=== PATIENT | female | born 1945 | race Caucasian/White ===

== ENCOUNTER 2016-06-14 23:00 | Emergency (ER) | payer MEDICARE, BC ==
[2016-06-14 23:32] LABS: Basophils % (A) 1 %; CH 30.9; CHCM 32.9; Eosinophils # (A) 0.3 k/uL (0-0.7); Eosinophils % (A) 5 %; HCT 41.2 % (34.0-46.0); HGB 13.4 gm/dL (11.4-16.0); Luc # (Auto) 0.16; Luc % (Auto) 3; Lymphocytes # (A) 1.4 k/uL (1.0-4.8); Lymphocytes % (A) 27 %; MCH 30.6 pg (25.0-35.0); MCHC 32.5 g/dL (31.0-37.0); MCV 94.2 fL (80.0-100.0); Mean Platelet Volume 7.1; Monocytes # (A) 0.5 k/uL (0-1.0); Monocytes % (A) 9 %; Neutrophils # (A) 2.8 k/uL (1.3-7.7); Neutrophils % (A) 55 %; RBC 4.38 m/uL (3.80-5.40); RDW 13.8 % (11.5-15.5); WBC 5.1 k/uL (3.8-10.6)
--- NOTE | 2016-06-14 23:32 | ED ---
General Adult HPI - General Chief complaint: Dizziness Stated complaint: BP Time Seen by Provider: 06/14/16 23:08 Source: patient, family Mode of arrival: ambulatory Limitations: no limitations - History of Present Illness Initial comments: This is a 62-year-old here with a history of hypertension or presents emergency department for high blood pressure, chest pressure, and dizziness. She states that the chest pressure is been going on and off for the last few weeks. She had a stress test approximate one week ago that was unremarkable per the patient. She states that her blood pressure has been elevated over the last few weeks. She is on Norvasc daily which she has been taking. She states that she was recently admitted to the hospital because of her elevated blood pressure. She does admit to a mild headache however no focal weakness. No blurred vision or double vision. Of note the patient's came in this evening and suffered a cardiac arrest and . The patient is very stressed out from this. She did take a Xanax and Norvasc before she presented to the ER. - Related Data Home Medications Medication Instructions Recorded Confirmed Levothyroxine Sodium [Synthroid] 88 mcg PO DAILY 01/12/15 02/04/16 Venlafaxine HCl [Effexor XR] 225 mg PO DAILY 08/07/15 02/04/16 lamoTRIgine [LaMICtal] 400 mg PO HS 11/17/15 02/04/16 ALPRAZolam 1 mg PO BID PRN 11/28/15 02/04/16 ALPRAZolam 1 mg PO BID@0700,1900 11/28/15 02/04/16 Cyclobenzaprine [Flexeril] 10 mg PO DAILY@0700 11/28/15 02/04/16 Hydrocodone/Acetaminophen [[place] 1 tab PO BID PRN 11/28/15 02/04/16 7.5-325] Previous Rx's Medication Instructions Recorded Eszopiclone [Lunesta] 3 mg PO HS #30 tab 11/24/15 Allergies Allergy/AdvReac Type Severity Reaction Status Date / Time No Known Allergies Allergy Verified 06/14/16 23:02 Review of Systems ROS Statement: Those systems with pertinent positive or pertinent negative responses have been documented in the HPI. ROS Other: All systems not noted in ROS Statement are negative. Past Medical History Past Medical History: Osteoarthritis (OA), Pneumonia, Thyroid Disorder Additional Past Medical History / Comment(s): Recent bowel surgery with post op acute metabolic encephalopathy and post op anemia, ECT with memory problems since, chronic back and neck pain - pt states she was told her spine is bone on bone., diverticulitis, constipation, osteoporosis, pancreatitis 2012, heart murmur as a child, pneumonia 2010, hypothyroid. History of Any Multi-Drug Resistant Organisms: None Reported Past Surgical History: Bowel Resection, Cholecystectomy, Tonsillectomy Additional Past Surgical History / Comment(s): 11-17-15 laparotomy with cecul volvulus-rt colectomy, ECT treatments, cosmetic facial sx/nose sx, colonoscopy- normal, L breast bx-benign, L knee arthroscopy. Past Anesthesia/Blood Transfusion Reactions: No Reported Reaction Past Psychological History: Anxiety, Bipolar, Depression Additional Psychological History / Comment(s): Pt resides with her spouse and her son lives with them. She no longer drives-family takes her places. Smoking Status: Never smoker Past Alcohol Use History: None Reported Past Drug Use History: None Reported - Past Family History Father Family Medical History: Coronary Artery Disease (CAD) Additional Family Medical History / Comment(s): at 62 Mother Family Medical History: Cancer Additional Family Medical History / Comment(s): brain cancer at age 70 General Exam - General Exam Comments Initial Comments: Constitutional: Awake alert Appears comfortable Head: Normocephalic atraumatic Eyes: no conjunctival injection No scleral icterus EOMI Neck: No JVD Supple Heart: Regular rate rhythm normal S1-S2 no murmurs Lungs: Clear to auscultation bilaterally No wheezing No rales Abdomen: Soft nondistended nontender Extremities: Non edematous DP pulses intact Radial pulses intact Neuro: A&Ox3 cranial nerves II through XII are grossly intact, pupils are 4 mm reactive bilaterally, no focal weakness in the extremities. No ataxia. Psych: Appropriate mood and affect Limitations: no limitations Course Vital Signs 06/14/16 06/14/16 06/15/16 23:01 23:56 00:21 Temperature 96.9 F L 98.0 F Pulse Rate 89 75 78 Respiratory 20 20 18 Rate Blood Pressure 222/97 183/96 166/86 O2 Sat by Pulse 98 98 98 Oximetry EKG Findings - EKG Comments: EKG Findings:: EKG showing normal sinus rhythm with a rate of 73.He segment changes or T-wave inversions. QTC is 429. Other intervals are normal. No ectopy. Medical Decision Making - Medical Decision Making This is a 70-year-old female presents emergency room for lightheadedness, chest pain, and elevated blood pressure. Blood pressure came down without any intervention. Last blood pressure is 166/86. Patient stated that she felt improved. Blood work was reviewed and unremarkable. This time I told her to continue taking her blood pressure medication. I told her to start a log of her blood pressures and follow-up with her primary doctor. She can return if she has worsening or changing symptoms. All questions were answered. - Lab Data Result diagrams: 06/14/16 23:25 06/14/16 23:25 Lab Results 06/14/16 06/14/16 06/14/16 Range/Units 23:25 23:25 23:25 WBC 5.1 (3.8-10.6) k/uL RBC 4.38 (3.80-5.40) m/uL Hgb 13.4 (11.4-16.0) gm/dL Hct 41.2 (34.0-46.0) % MCV 94.2 (80.0-100.0) fL MCH 30.6 (25.0-35.0) pg MCHC 32.5 (31.0-37.0) g/dL RDW 13.8 (11.5-15.5) % Plt Count 248 (150-450) k/uL Neutrophils % 55 % Lymphocytes % 27 % Monocytes % 9 % Eosinophils % 5 % Basophils % 1 % Neutrophils # 2.8 (1.3-7.7) k/uL Lymphocytes # 1.4 (1.0-4.8) k/uL Monocytes # 0.5 (0-1.0) k/uL Eosinophils # 0.3 (0-0.7) k/uL Basophils # 0.0 (0-0.2) k/uL Sodium 135 L (137-145) mmol/L Potassium 4.3 (3.5-5.1) mmol/L Chloride 97 L (98-107) mmol/L Carbon Dioxide 28 (22-30) mmol/L Anion Gap 10 mmol/L BUN 10 (7-17) mg/dL Creatinine 0.90 (0.52-1.04) mg/dL Est GFR (MDRD) Af Amer >60 (>60 ml/min/1.73 sqM) Est GFR (MDRD) Non-Af >60 (>60 ml/min/1.73 sqM) Glucose 96 (74-99) mg/dL Calcium 9.3 (8.4-10.2) mg/dL Total Bilirubin 0.3 (0.2-1.3) mg/dL AST 29 (14-36) U/L ALT 35 (9-52) U/L Alkaline Phosphatase 80 (38-126) U/L Troponin I <0.012 (0.000-0.034) ng/mL Total Protein 7.0 (6.3-8.2) g/dL Albumin 4.4 (3.5-5.0) g/dL Disposition Clinical Impression: Hypertension Disposition: HOME SELF-CARE Condition: Stable Instructions: Hypertension (ED) Referrals: Sajan Martin DO [Primary Care Provider] - 1-2 days
[2016-06-14 23:49] LABS: ALT 35 U/L (9-52); AST 29 U/L (14-36); Alkaline Phosphatase 80 U/L (38-126); Anion Gap 10 mmol/L; Blood Urea Nitrogen 10 mg/dL (7-17); Calcium 9.3 mg/dL (8.4-10.2); Carbon Dioxide 28 mmol/L (22-30); Chloride 97 mmol/L (98-107); Glucose 96 mg/dL (74-99); Non-African American GFR(MDRD) >60 (>60 ml/min/1.73 sqM); Potassium 4.3 mmol/L (3.5-5.1); Sodium 135 mmol/L (137-145); Total Bilirubin 0.3 mg/dL (0.2-1.3)
--- NOTE | 2016-06-14 23:56 | XR ---
EXAMINATION TYPE: XR chest 2V DATE OF EXAM: 06/14/2016 11:41 PM COMPARISON: 11/28/2015 HISTORY: Hypertension and feeling dizzy. TECHNIQUE: Frontal and lateral views of the chest are obtained. FINDINGS: There is stable prominent hilar vascular markings probably related to pulmonary hypertension. There is no focal air space opacity, pleural effusion, or pneumothorax seen. Chronic lung changes are suggested bilaterally. The cardiac silhouette size is within normal limits. The osseous structures are intact. IMPRESSION: 1. No focal pneumonia. 2. Chronic lung changes.
[2016-06-15 00:21] VITALS: BP 166/86; PULSE 78; RESP 18; TEMP 98
== END 2016-06-15 00:29 | disposition home or self-care (01) ==
LOC: EC 23:00
DX: I10 Essential (primary) hypertension (principal); E03.9 Hypothyroidism, unspecified; F41.9 Anxiety disorder, unspecified; F31.9 Bipolar disorder, unspecified; Z79.899 Other long term (current) drug therapy
CPT/HCPCS: 36415; 71020; 80053; 84484; 85025; 93005; 99284

== ENCOUNTER → 2016-09-28 | Outpatient (CLI) | payer MEDICARE, BC ==
--- NOTE | 2016-09-29 14:43 | MR ---
EXAMINATION TYPE: MR cervical spine wo con DATE OF EXAM: 09/28/2016 2:12 PM COMPARISON: NONE HISTORY: 71-year-old female with neck pain for 2 years. TECHNIQUE: Multiplanar, multisequence images of the cervical spine were acquired. Findings: No craniocervical junction abnormality, predental space widening, or prevertebral soft tissue swellin g. The intervertebral discs are degenerated, desiccated, and narrowed, greatest at C4-C6 levels with dis c osteophyte complex formation. Some sclerotic degenerative endplate change particularly at C4-C5, posteriorly and towards the right at C5-C6. No suspicious bone marrow replacement. Alignment is maintained. Corresponding ligamentum flavum thickening and multilevel advanced facet and uncovertebral joint dege nerative change. At C2-C3, there is facet degenerative change without spinal canal or foraminal stenosis. At C3-C4, there is facet degenerative change without significant canal or foraminal stenosis. At C4-C5, there is broad-based disc osteophyte complex with contiguous uncovertebral joint arthropath y. Additional facet arthropathy and ligamentum flavum thickening. Changes result in moderate right ne uroforaminal stenosis and [id number] spinal canal stenosis with abutment of both the dorsal and ventral cord but no significant cord flattening. At C5-C6, broad-based discussed by complex with contiguous uncovertebral joint degenerative change. C hanges result in mild to moderate right neuroforaminal stenosis with mild overall spinal canal stenos is. Abutment of the ventral cord without significant cord flattening. At C6-C7, there is broad-based disc osteophyte complex with uncovertebral joint and facet degenerativ e change as well as ligamentum flavum thickening. There is mild overall spinal canal narrowing. Mild left neuroforaminal stenosis. No significant cord abutment or cord flattening. At C7-T1, there is facet degenerative change without significant spinal canal or neural foraminal holger nosis. There is some artifact projecting over the cord but no definite suspicious cord signal abnormality. There appears to be an ovoid 1.5 x 1.5 cm T2 hyperintense lesion within the left prevertebral soft ti ssues behind the carotid space located at the T1 level. Etiology uncertain, possibly cystic lesion or large lymph node and can be further evaluated with a contrast enhanced CT neck. Refer to axial image 1 and sagittal T2 image 1. IMPRESSION: 1. Moderate to advanced disc/endplate degenerative change with scattered facet and uncovertebral join t arthropathy and ligamentum flavum thickening. 2. Changes are greatest at C4-C5 where there is a mild to moderate narrowing of the spinal canal with abutment of both the dorsal and ventral cord and then at the C5-C6 and C6-C7 where there is only mil d narrowing of the spinal canal. 3. Moderate right neuroforaminal stenosis at C4-C5 and mild to moderate on the right at C5-C6. 4. A partially visualized 1.5 cm ovoid T2 hyperintense lesion in the left prevertebral soft tissues b ehind the carotid space located at the T1 level. The etiology is uncertain. Possible cystic lesion, e ctatic vein, or enlarged lymph node. Consider contrast enhanced CT neck to further evaluate.
== END | disposition home or self-care (01) ==
LOC: RADMRIMAIN 13:13
PROVIDERS: ATTEND Orthopaedic Surgery
DX: M48.02 Spinal stenosis, cervical region (principal); M99.71 Connective tissue and disc stenosis of intervertebral foramina of cervical region; M47.812 Spondylosis without myelopathy or radiculopathy, cervical region; M46.92 Unspecified inflammatory spondylopathy, cervical region; M24.28 Disorder of ligament, vertebrae
CPT/HCPCS: 72141

== ENCOUNTER → 2016-10-22 | Outpatient (CLI) | payer MEDICARE, BC ==
--- NOTE | 2016-10-22 16:02 | CT ---
EXAMINATION TYPE: CT soft tissue neck wo con DATE OF EXAM: 10/22/2016 COMPARISON: MRI finding September 28, 2016 HISTORY: Neck Mass CT DLP: 174.5 mGycm Automated exposure control for dose reduction was used. FINDINGS: The 1.5 cm ovoid T2 hyperintense findings in the left prevertebral soft tissues on the recent MRI ext ends anteroinferolaterally into the left internal jugular vein, consistent with small varix. The remainder of the infrahyoid neck examination is unremarkable. No soft tissue mass, adenopathy, or focal skeletal findings. Cervical spondylosis changes are noted. The airway is unremarkable. The suprahyoid examination is unremarkable. No soft tissue mass, adenopathy, or focal skeletal findin gs. IMPRESSION: THE LEFT PREVERTEBRAL T2W SOFT TISSUE FINDING IS CONSISTENT WITH VARIX. NO OTHER FINDINGS.
== END | disposition home or self-care (01) ==
LOC: RADCTMAIN 12:29
PROVIDERS: ATTEND Family Medicine
DX: M79.89 Other specified soft tissue disorders (principal); R22.1 Localized swelling, mass and lump, neck
CPT/HCPCS: 70490

== ENCOUNTER 2017-01-12 13:06 | Emergency (ER) | payer MEDICARE, BC ==
[2017-01-12] MEDS ORDERED: FAMOTIDINE 20 MG/2 ML VIAL IV STA (13:17)
[2017-01-12] MEDS ORDERED: ONDANSETRON 4 MG/2 ML VIAL IVP STA (13:17)
[2017-01-12] MEDS ORDERED: SODIUM CHLORIDE 0.9% 1,000 ML IV ONE (13:17)
[2017-01-12] MEDS ORDERED: diphenhydrAMINE 50 MG/ML 1 ML VIAL IVP STA (13:17)
[2017-01-12] MEDS ORDERED: methylPREDNISolone SOD SUCCI 125 MG/2 ML VIAL IV STA (13:17)
[2017-01-12] MEDS ORDERED: RX INFO: IV CONTRAST WAS GIVEN 1 EACH MISC MISCELLANE PRN (13:17)
[2017-01-12] MEDS ORDERED: ASPIRIN 325 MG TAB PO STA (13:18)
[2017-01-12 14:10] LABS: Basophils # (A) 0.1 k/uL (0-0.2); Basophils % (A) 1 %; CH 30.8; CHCM 33.6; Eosinophils # (A) 0.3 k/uL (0-0.7); Eosinophils % (A) 3 %; HCT 39.6 % (34.0-46.0); HDW 2.43; HGB 13.5 gm/dL (11.4-16.0); Luc # (Auto) 0.36; Luc % (Auto) 4; Lymphocytes # (A) 1.8 k/uL (1.0-4.8); Lymphocytes % (A) 18 %; MCH 31.2 pg (25.0-35.0); MCV 91.8 fL (80.0-100.0); Mean Platelet Volume 6.4; Monocytes # (A) 0.7 k/uL (0-1.0); Monocytes % (A) 7 %; Neutrophils # (A) 6.5 k/uL (1.3-7.7); Neutrophils % (A) 67 %; RBC 4.31 m/uL (3.80-5.40); RDW 13.1 % (11.5-15.5); WBC 9.7 k/uL (3.8-10.6); WBC (Perox) 9.52
[2017-01-12 14:17] LABS: Anion Gap 11 mmol/L; Blood Urea Nitrogen 7 mg/dL (7-17); Calcium 9.6 mg/dL (8.4-10.2); Carbon Dioxide 25 mmol/L (22-30); Chloride 98 mmol/L (98-107); Glucose 85 mg/dL (74-99); Non-African American GFR(MDRD) >60 (>60 ml/min/1.73 sqM); Potassium 4.4 mmol/L (3.5-5.1); Sodium 134 mmol/L (137-145)
--- NOTE | 2017-01-12 14:51 | CT ---
EXAMINATION TYPE: CT soft tissue neck wo con DATE OF EXAM: 01/12/2017 COMPARISON: 10/22/2016 HISTORY: Patient complains of severe sore throat. CT DLP: 343.86 mGycm CONTRAST: Patient injected with 0 mL of Omnipaque 350. TECHNIQUE: Axial images at 3 mm thick sections. Reconstructed images in the coronal plane and sagitt al plane are reviewed. FINDINGS: Limited CT sections are obtained the lung apices. The lung apices appear clear. CT neck: The torus tubarius and fossa of Rosenmuller are normal. Forming Machine Adjuster spaces are normal. Para nasal sinuses and mastoid air cells are clear. Parotid glands appear normal and symmetrical. Submandibular glands, are normal. Parapharyngeal spac es are normal. There are scattered small lymph nodes within the neck greater on the right. No suspici ous enlarged adenopathy is evident. The hypopharynx appears within normal limits. Tonsillar pillars are unremarkable. Vocal cord level appear symmetrical. Thyroid as visualized is normal. There is a scoliosis through the cervical spine. IMPRESSIONS: 1. No suspicious abnormality to account for patient's sore throat. 2. Scattered small lymph nodes present bilaterally, greater on the right.
--- NOTE | 2017-01-12 14:54 | CT ---
EXAMINATION TYPE: CT chest wo con DATE OF EXAM: 01/12/2017 COMPARISON: NONE HISTORY: Patient complains of chest pain. CT DLP: 563.2 mGycm, Automated exposure control for dose reduction was used. CONTRAST: Performed injected with 0 mL of Omnipaque 350. TECHNIQUE: Axial images were obtained at 5 mm thick sections. Reconstructed images are reviewed on [employer] computer in the coronal plane. FINDINGS: Portion of the thyroid visualized is normal. No suspicious lung nodules or focal infiltrates are present. No enlarged mediastinal or hilar adenopathy is evident. The ascending aorta diameter at the level o f the main pulmonary artery is 3.4 cm. The main pulmonary artery diameter at the bifurcation is 2.[address] sections are obtained through the upper abdomen. Abdomen is essentially unremarkable. IMPRESSIONS: 1. No acute intrathoracic changes
--- NOTE | 2017-01-12 15:19 | XR ---
EXAMINATION TYPE: XR chest 2V DATE OF EXAM: 01/12/2017 COMPARISON: 06/14/2016 INDICATION: Sore throat TECHNIQUE: Frontal and lateral views of the chest are obtained. FINDINGS: The heart size is normal. The pulmonary vasculature is normal. The lungs are clear. Subglottic airway appears unremarkable IMPRESSION: 1. No acute pulmonary process.
--- NOTE | 2017-01-12 15:58 | ED ---
General Adult HPI - General Chief complaint: Chest Pain Stated complaint: SORE THROAT, POSSIBLE, CHEST PRESSURE Time Seen by Provider: 01/12/17 13:19 Source: patient, EMS Mode of arrival: EMS - History of Present Illness Initial comments: 71-year-old female with past medical history of osteoarthritis and thyroid disorder presented for evaluation of sore throat with radiation down into her chest. She states that her symptoms started last night and progressively worsened through the day. She states that she feels as though her small palate and uvula are swelling although she denies any shortness of breath, wheezing, stridor, or dyspnea. She went out to her [employer] soccer game this morning and her symptoms continued without any improvement. She denies any other associated symptoms and states that she's tried no new foods no new detergents or medications. She denies any previous history of ALLERGIC reactions and states that she is not having a fever, cough, scratchy throat. - Related Data Home Medications Medication Instructions Recorded Confirmed Levothyroxine Sodium [Synthroid] 88 mcg PO DAILY 01/12/15 01/12/17 Venlafaxine HCl [Effexor XR] 225 mg PO DAILY 08/07/15 01/12/17 lamoTRIgine [LaMICtal] 400 mg PO HS 11/17/15 01/12/17 ALPRAZolam 1 mg PO BID PRN 11/28/15 01/12/17 ALPRAZolam 1 mg PO BID@0700,1900 11/28/15 01/12/17 Hydrocodone/Acetaminophen [[place] 1 tab PO TID PRN 11/28/15 01/12/17 7.5-325] Levomefolate Calcium 7.5 mg PO DAILY 01/12/17 01/12/17 [l-Methylfolate Calcium] Meloxicam [Mobic] 15 mg PO DAILY 01/12/17 01/12/17 amLODIPine [Norvasc] 2.5 mg PO DAILY 01/12/17 01/12/17 Previous Rx's Medication Instructions Recorded Eszopiclone [Lunesta] 3 mg PO HS #30 tab 11/24/15 Azithromycin [Zithromax Z-pack] 0 mg PO DIRECTED #6 tab 01/12/17 diphenhydrAMINE [Benadryl] 50 mg PO BID PRN #14 capsule 01/12/17 predniSONE 50 mg PO DAILY #5 tablet 01/12/17 Allergies Allergy/AdvReac Type Severity Reaction Status Date / Time No Known Allergies Allergy Verified 01/12/17 14:28 Review of Systems ROS Statement: Those systems with pertinent positive or pertinent negative responses have been documented in the HPI. ROS Other: All systems not noted in ROS Statement are negative. Constitutional: Denies: fever, chills Eyes: Denies: eye pain, eye discharge, vision change ENT: Reports: throat pain. Denies: ear pain, hearing loss, epistaxis, congestion Respiratory: Denies: cough, dyspnea Cardiovascular: Denies: chest pain, palpitations Endocrine: Denies: fatigue, polydipsia Gastrointestinal: Denies: abdominal pain, nausea, vomiting Genitourinary: Denies: urgency, dysuria Musculoskeletal: Denies: back pain, arthralgia Skin: Denies: rash, lesions Neurological: Denies: headache, weakness Psychiatric: Denies: anxiety, depression Past Medical History Past Medical History: Osteoarthritis (OA), Pneumonia, Thyroid Disorder Additional Past Medical History / Comment(s): Recent bowel surgery with post op acute metabolic encephalopathy and post op anemia, ECT with memory problems since, chronic back and neck pain - pt states she was told her spine is bone on bone., diverticulitis, constipation, osteoporosis, pancreatitis 2012, heart murmur as a child, pneumonia 2010, hypothyroid. History of Any Multi-Drug Resistant Organisms: None Reported Past Surgical History: Bowel Resection, Cholecystectomy, Tonsillectomy Additional Past Surgical History / Comment(s): 11-17-15 laparotomy with cecul volvulus-rt colectomy, ECT treatments, cosmetic facial sx/nose sx, colonoscopy- normal, L breast bx-benign, L knee arthroscopy. Past Anesthesia/Blood Transfusion Reactions: No Reported Reaction Past Psychological History: Anxiety, Bipolar, Depression Smoking Status: Never smoker Past Alcohol Use History: None Reported Past Drug Use History: None Reported - Past Family History Father Family Medical History: Coronary Artery Disease (CAD) Additional Family Medical History / Comment(s): at 62 Mother Family Medical History: Cancer Additional Family Medical History / Comment(s): brain cancer at age 70 General Exam General appearance: alert, in no apparent distress Head exam: Present: atraumatic, normocephalic, normal inspection Eye exam: Present: normal appearance, PERRL, EOMI. Absent: scleral icterus, conjunctival injection, periorbital swelling ENT exam: Present: mucous membranes dry, TM's normal bilaterally, normal external ear exam, other (throat appears to be mildly swollen and inflamed). Absent: normal oropharynx Neck exam: Present: normal inspection. Absent: tenderness, meningismus, lymphadenopathy Respiratory exam: Present: normal lung sounds bilaterally. Absent: respiratory distress, wheezes, rales, rhonchi, stridor Cardiovascular Exam: Present: regular rate, normal rhythm, normal heart sounds. Absent: systolic murmur, diastolic murmur, rubs, gallop, clicks GI/Abdominal exam: Present: soft, normal bowel sounds. Absent: distended, tenderness, guarding, rebound, rigid Rectal exam: Present: deferred Extremities exam: Present: normal inspection, full ROM, normal capillary refill. Absent: tenderness, pedal edema, joint swelling, calf tenderness Back exam: Present: normal inspection Neurological exam: Present: alert, oriented X3, CN II-XII intact Psychiatric exam: Present: normal affect, normal mood Skin exam: Present: warm, dry, intact, other (nonspecific rash to back). Absent : rash, urticaria, vesicles Course Vital Signs 01/12/17 01/12/17 01/12/17 13:35 13:54 14:02 Temperature 97.9 F Pulse Rate 78 84 78 Respiratory 18 18 18 Rate Blood Pressure 187/87 206/87 170/74 O2 Sat by Pulse 96 97 98 Oximetry 01/12/17 01/12/17 01/12/17 14:10 14:44 15:28 Temperature Pulse Rate 77 76 78 Respiratory 18 18 16 Rate Blood Pressure 157/81 161/77 157/73 O2 Sat by Pulse 98 98 98 Oximetry 01/12/17 16:20 Temperature 97.2 F L Pulse Rate 79 Respiratory 18 Rate Blood Pressure 147/67 O2 Sat by Pulse 94 L Oximetry EKG Findings - EKG Comments: EKG Findings:: Normal sinus rhythm with a ventricular rate of 77, GEORGE 156, QRS 92, QT/QTc is 372/420. Medical Decision Making - Medical Decision Making 71-year-old female presented for evaluation of sore throat since last night. She states it came on suddenly progressed throughout the rest of the day. On physical examination lungs are clear to auscultation bilaterally and there is no abnormality and her heart tones without murmur or rubs or gallop. Her pharynx appears inflamed and mildly swollen however the patient states no shortness of breath and there is no stridor noted. There is a small rash to her back or rate is non-urticarial and she has no indications of ALLERGIC reaction. Nonetheless the patient was provided with steroids, Benadryl, and a PPI. CT soft tissue neck was also obtained as well as labs. Labs revealed no significant abnormalities and the CT neck soft tissue showed no acute process. CT chest also showed no acute process. The patient was reevaluated and had near resolution of her symptoms. She was informed of all results and through shared decision making it was determined that she would be discharged with instructions to follow-up with her primary care physician but to return to this facility if her symptoms should worsen or persist. The patient acknowledged an understanding of this information and agreed with this plan of care. She is further given prescriptions for steroids and a Z-Don. - Lab Data Result diagrams: 01/12/17 13:50 01/12/17 13:50 Lab Results 01/12/17 01/12/17 01/12/17 Range/Units 13:50 13:50 13:50 WBC 9.7 (3.8-10.6) k/uL RBC 4.31 (3.80-5.40) m/uL Hgb 13.5 (11.4-16.0) gm/dL Hct 39.6 (34.0-46.0) % MCV 91.8 (80.0-100.0) fL MCH 31.2 (25.0-35.0) pg MCHC 34.0 (31.0-37.0) g/dL RDW 13.1 (11.5-15.5) % Plt Count 306 (150-450) k/uL Neutrophils % 67 % Lymphocytes % 18 % Monocytes % 7 % Eosinophils % 3 % Basophils % 1 % Neutrophils # 6.5 (1.3-7.7) k/uL Lymphocytes # 1.8 (1.0-4.8) k/uL Monocytes # 0.7 (0-1.0) k/uL Eosinophils # 0.3 (0-0.7) k/uL Basophils # 0.1 (0-0.2) k/uL Sodium 134 L (137-145) mmol/L Potassium 4.4 (3.5-5.1) mmol/L Chloride 98 (98-107) mmol/L Carbon Dioxide 25 (22-30) mmol/L Anion Gap 11 mmol/L BUN 7 (7-17) mg/dL Creatinine 0.80 (0.52-1.04) mg/dL Est GFR (MDRD) Af Amer >60 (>60 ml/min/1.73 sqM) Est GFR (MDRD) Non-Af >60 (>60 ml/min/1.73 sqM) Glucose 85 (74-99) mg/dL Calcium 9.6 (8.4-10.2) mg/dL Troponin I (0.000-0.034) ng/mL NT-Pro-B Natriuret Pep 135 pg/mL Group A Strep Rapid (Negative) 01/12/17 01/12/17 Range/Units 13:50 13:50 WBC (3.8-10.6) k/uL RBC (3.80-5.40) m/uL Hgb (11.4-16.0) gm/dL Hct (34.0-46.0) % MCV (80.0-100.0) fL MCH (25.0-35.0) pg MCHC (31.0-37.0) g/dL RDW (11.5-15.5) % Plt Count (150-450) k/uL Neutrophils % % Lymphocytes % % Monocytes % % Eosinophils % % Basophils % % Neutrophils # (1.3-7.7) k/uL Lymphocytes # (1.0-4.8) k/uL Monocytes # (0-1.0) k/uL Eosinophils # (0-0.7) k/uL Basophils # (0-0.2) k/uL Sodium (137-145) mmol/L Potassium (3.5-5.1) mmol/L Chloride (98-107) mmol/L Carbon Dioxide (22-30) mmol/L Anion Gap mmol/L BUN (7-17) mg/dL Creatinine (0.52-1.04) mg/dL Est GFR (MDRD) Af Amer (>60 ml/min/1.73 sqM) Est GFR (MDRD) Non-Af (>60 ml/min/1.73 sqM) Glucose (74-99) mg/dL Calcium (8.4-10.2) mg/dL Troponin I <0.012 (0.000-0.034) ng/mL NT-Pro-B Natriuret Pep pg/mL Group A Strep Rapid Negative (Negative) Disposition Clinical Impression: Sore throat, Dehydration Disposition: HOME SELF-CARE Condition: Stable Instructions: Pharyngitis (ED), Strep Throat (ED), Anaphylaxis (ED), General Allergic Reaction (ED) Additional Instructions: Please use medication as discussed. Please follow up with family doctor if symptoms have not improved over the next two days. Please return to the emergency room if your symptoms increase or worsen or for any other concerns. Prescriptions: Azithromycin [Zithromax Z-pack] 0 mg PO DIRECTED #6 tab diphenhydrAMINE [Benadryl] 50 mg PO BID PRN #14 capsule PRN Reason: Allergic Reaction predniSONE 50 mg PO DAILY #5 tablet Referrals: Sajan Martin DO [Primary Care Provider] - 1-2 days Time of Disposition: 16:13
[2017-01-12 16:23] VITALS: BP 147/67; PULSE 79; RESP 18; TEMP 97.2
== END 2017-01-12 16:22 | disposition home or self-care (01) ==
LOC: EC 13:06
DX: J02.9 Acute pharyngitis, unspecified (principal); E86.0 Dehydration; R07.9 Chest pain, unspecified; E03.9 Hypothyroidism, unspecified; F41.9 Anxiety disorder, unspecified; F31.9 Bipolar disorder, unspecified; Z79.1 Long term (current) use of non-steroidal anti-inflammatories (NSAID); Z79.899 Other long term (current) drug therapy; Z53.8 Procedure and treatment not carried out for other reasons
CPT/HCPCS: 36415; 93005; 83880; 80048; 84484; 85025; 87081; 87430; 71020; 70490; 71250; 99285; 96374; 96375 ×3; 96361; J1200; J2930; J2405

== ENCOUNTER → 2017-03-25 | Outpatient (CLI) | payer BC, MEDICARE ==
[2017-03-06 15:44] VITALS: BMI 24.1
[2017-03-25 12:43] VITALS: BP 145/84; PULSE 78; RESP 16
--- NOTE | 2017-03-25 13:18 | P.CONS ---
History of Present Illness - Reason for Consult Consult date: 03/25/17 - History of Present Illness This is the initial visit for this 71 years old female with a chronic history of severe neck pain, pain started more than 5 years ago, she denies any initiating event she denies any history of trauma or accident or heavy lifting, also patient complaining of some low back pain, the pain increased with any activity , patient done physical therapy without any improvement of her pain, she denies any motor or sensory deficit that she reported that she will occasionally she feels some numbness and tingling in her fingers, the pain in the cervical area that radiated towards the shoulder blade area bilaterally, she denies any fever or night sweats she denies any change in the motor movement agglutinations, pain in the lumbar area localized, and is not radiated to the lower extremities Past Medical History Past Medical History: Hypertension, Osteoarthritis (OA), Thyroid Disorder Additional Past Medical History / Comment(s): left side and lower back pain, History of Any Multi-Drug Resistant Organisms: None Reported Past Surgical History: Bowel Resection, Cholecystectomy, Tonsillectomy Additional Past Surgical History / Comment(s): "face lift", cathi cataracts, Past Anesthesia/Blood Transfusion Reactions: No Reported Reaction Past Psychological History: Anxiety, Bipolar, Depression Additional Psychological History / Comment(s): "nervous breakdown 5 yrs ago" Smoking Status: Never smoker Past Alcohol Use History: None Reported Past Drug Use History: None Reported - Past Family History Father Family Medical History: Coronary Artery Disease (CAD) Additional Family Medical History / Comment(s): at 62 Mother Family Medical History: Cancer Additional Family Medical History / Comment(s): brain cancer Brother(s) Family Medical History: Cancer Medications and Allergies Home Medications Medication Instructions Recorded Confirmed Type Levothyroxine Sodium [Synthroid] 88 mcg PO DAILY 01/12/15 03/25/17 History lamoTRIgine [LaMICtal] 400 mg PO HS 11/17/15 03/25/17 History Eszopiclone [Lunesta] 3 mg PO HS #30 tab 11/24/15 03/25/17 Rx ALPRAZolam 1 mg PO QID PRN 11/28/15 03/25/17 History Hydrocodone/Acetaminophen [[place] 1 tab PO BID PRN 11/28/15 03/25/17 History 7.5-325] Cholecalciferol [Vitamin D3] 1,000 unit PO DAILY 03/06/17 03/25/17 History Multivitamins, Thera [Multivitamin 1 tab PO DAILY 03/06/17 03/25/17 History (formulary)] [place]-3 Fatty Acids/Fish Oil [Fish 1 each PO DAILY 03/06/17 03/25/17 History Oil 1,000 mg Softgel] Calcium Carbonate [Calcium] 1,200 mg PO DAILY 03/21/17 03/25/17 History Cyanocobalamin [Vitamin B-12] 500 mcg PO DAILY 03/21/17 03/25/17 History Cyclobenzaprine [Flexeril] 10 mg PO BID 03/21/17 03/25/17 History Meloxicam [Mobic] 15 mg PO DAILY 03/21/17 03/25/17 History Venlafaxine HCl [Effexor XR] 225 mg PO DAILY 03/21/17 03/25/17 History amLODIPine [Norvasc] 2.5 mg PO HS 03/21/17 03/25/17 History Allergies Allergy/AdvReac Type Severity Reaction Status Date / Time No Known Allergies Allergy Verified 03/25/17 12:28 Physical Exam Vitals: Vital Signs Pulse Resp BP Pulse Ox 03/25/17 12:32 78 16 145/84 98 Social history : not smoker , NO ETOH , NO Illegal drugs use Review of Systems : 1- Constitutional : no chills , no fever , no night sweats , 2- Ears : no ear discharge , no change in hearing 3-Nose, Mouth ,Throat ; no bleeding gums, no sore throat , no epistaxis , 4-Cardiovascular : Denies chest pain, , no orthopnea , no palpitation 5-Respiratory : Denies cough , no dyspnea , no hemoptysis 6-Gastrointestinal :, no change in bowel habits , no coffee- ground emesis . 7-Genitourinary : No hematuria , no discharge , no incontinence, 8-Musculoskeletal : No gait dysfunction , report low back pain , 9- Neurological : no ataxia , no tremor , no sezure , 10-Psychatric , no suicidal ideation no hallucination 11- Endocrine : no cold intolerence , no polyuria , no polydypsia , 12-Hematologic : no easy bleeding , no easy brusing , 13-Allergic / immunology : no angioedema , no wheezing ,no allergic rhinitis 14-Integumentary : no brttle nails , no change hair / nails , no foot/leg ulcers . Physical Examinations : 1-Constitutional : Cooperative , not in acute distress . 2-HEENT : nech ; supple , no Lymphadenopathy , no Thyromegaly , :eyes , no icterus, no photophobia . ENT : , normal oropharynx , no Thrush 3- Respiratory : Chest clear to auscultations Bilaterally , no wheezing . 4- Cardiovascular : regular rate and rhythem , S1 , S2 , no S3 , no S4. 5- Gastrointestinal: abdomen soft no tenderness , no organomegally . 6- Genitourinary : Defferred . 7-Integumentary : No cellulitis , no ulcers , normal skin turgor , no cyanotic . 8- neurologic : Cranial nerve II to XII intact , no focal neurological deffecit 9-psychatric : alert , oriented X 3 , appropriate affect , intact judgment and insight . 10-Lymphatic : no Lymphadenopathy. 11- musculoskeltal: normal gait Cervical Spine motor stregnth in the deltoid and biceps, normal right side , normal Left side motor stregnth biceps and the wrist extensors normal right side ,normal left side . motor stregnth in the triceps muscle . normal Right side , normal Left side deep tendon reflexes normal at the biceps , normal at Brachioradialis , normal at triceps. positive cervical facet loading test . Lumber spine moter stegnth lower extremities ,thigh and legs 5/5 Right side , 5/5 Left side deep tendon reflexes : normal Knee Jerk , normal ankle Jerk positive lumber facet Loading Test Range of motion of the lumbar spine Flexion 60 degrees, extension 10 degrees strait leg raising test negative bilaterally Fabere test negative bilaterally Results Comments: MRI of the cervical spine multilevel cervical facet arthropathy from C2 to C6 and multilevel cervical degenerative disc disease Assessment and Plan Plan: Assessment and plan= chronic neck pain secondary to cervical degenerative disc disease , cervical spondylosis with lumbar facet arthropathy , Chronic low back pain secondary to lumbar spondylosis. Currently most of the pain localized in the cervical area and discussed with the patient option of doing cervical diagnostic medial branch block, and if it was possible to do the radiofrequency ablation of the medial branch in the cervical area but patient reported that she is not interested in doing any interventional pain management , and she prefers to try medication management, recommend continue current pain medication [place] 7.5 mg twice a day, and Alia, Patient given prescription for Neurontin 100 mg twice a day and increase after 1 week to 3 times a day, and patient will follow up with the pain clinic in 6-8 weeks , if patient wanted to proceed with interventional pain management , then she could be candidate diagnostic medial branch block cervical area C2 to C6
== END | disposition home or self-care (01) ==
LOC: PNWHC3 12:21
PROVIDERS: ATTEND Specialist
DX: M50.30 Other cervical disc degeneration, unspecified cervical region (principal); M47.812 Spondylosis without myelopathy or radiculopathy, cervical region; M46.82 Other specified inflammatory spondylopathies, cervical region; F41.9 Anxiety disorder, unspecified; F32.9 Major depressive disorder, single episode, unspecified; I10 Essential (primary) hypertension; Z79.1 Long term (current) use of non-steroidal anti-inflammatories (NSAID); Z79.899 Other long term (current) drug therapy
CPT/HCPCS: 99211

== ENCOUNTER → 2017-05-15 | Outpatient (CLI) | payer MEDICARE ==
--- NOTE | 2017-05-16 11:05 | MM ---
Reason for exam: screening (asymptomatic). Last mammogram was performed 5 years ago. History: Patient is postmenopausal. Benign excisional biopsy of the left breast, 2001. Physical Findings: A clinical breast exam by your physician is recommended on an annual basis and results should be correlated with mammographic findings. MG 3D Screening Mammo W/Cad Bilateral CC and MLO view(s) were taken. Prior study comparison: May 20, 2012, bilateral digital screening mammo w/CAD. October 21, 2007, bilateral digital screening mammogram. The breast tissue is heterogeneously dense. This may lower the sensitivity of mammography. There is chronic nodularity bilaterally. Focal asymmetry upper outer left breast. This finding is changed when compared with previous exams. ASSESSMENT: Incomplete: need additional imaging evaluation, BI-RAD 0 RECOMMENDATION: Special view mammogram and ultrasound of the left breast. [facility] will attempt to contact patient to return for supplemental views and ultrasound.
== END | disposition home or self-care (01) ==
LOC: RADMAMWWP 14:41
PROVIDERS: ATTEND Family Medicine
DX: Z12.31 Encounter for screening mammogram for malignant neoplasm of breast (principal)
CPT/HCPCS: 77063; 77067

== ENCOUNTER → 2017-05-20 | Outpatient (CLI) | payer MEDICARE ==
[2017-05-20 12:14] VITALS: BP 143/79; PULSE 79; RESP 18
--- NOTE | 2017-05-20 12:43 | P.PN ---
Progress Note - Text Progress Note Date: 05/20/17 Patient returns for followup for chronic neck pain with radiation to shoulders, L >> R. Patient recently tried Neurontin at lowest dose, which she no longer wants to use due to psychological side effects. Patient gets [place] from her PCP which she gets some relief from. Today, pt denies new-onset weakness, bowel /bladder incontinence, or any other signs or symptoms of cauda equina syndrome. There are no signs of acute intoxication, and no indications of medication diversion or overuse. In addition to above, 13-point review of systems is also negative for chest pain , shortness of breath, changes in vision, changes in hearing, new onset weakness , abdominal pain, diarrhea, extreme fatigue, malaise, fever, skin changes, homicidal or suicidal ideation, or bowel or bladder incontinence. 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 cervical spondylosis without myelopathy 2. cervical DDD 3. chronic pain syndrome Plan: 1. Explanation: Opioid and psychological risk scores were reviewed. Diagnoses , prognoses, and multiple treatment options including but not limited to physical therapy, interventional therapies, adjuvant medical therapies, narcotic medication therapies, and surgery were discussed with the patient and all questions were answered to the patient's satisfaction. 2. Opioid agreement: no opioids prescribed today 3. Counseling: The patient was counseled extensively on BODY MASS INDEX, EXERCISE. Specifically, the patient was instructed regarding the importance of weight control, and exercise in the context of both chronic pain and overall health. 4. Procedures: left C2-C6 medial branch blocks x 2 sets, then RFA if relief 5. Consultations: None 6. Investigations: None 7. Medications: none prescribed 8. Disposition: f/u for procedure as scheduled PQRS measures: 1-Patient's medications are documented in the chart. 2-Tobacco use is negative 3-Patient has not had a pneumococcal vaccine. 4-Advanced care planning discussed, patient unable to give. 5-Opioid contract NOT signed with the patient. 6-Pain positive, follow-up visit or procedure scheduled 7-Patient's blood pressure measured and documented, and patient will follow up with the primary care due to hypertension. 8-Patient's weight was measured, and body mass index ABOVE the normal limits, and counseling was done. Patient instructed to follow up with PCP. 9-Patient WAS NOT identified as an unhealthy alcohol user.
== END | disposition home or self-care (01) ==
LOC: PNWHC3 11:55
PROVIDERS: ATTEND Anesthesiology
DX: G89.29 Other chronic pain (principal); M47.812 Spondylosis without myelopathy or radiculopathy, cervical region; M50.30 Other cervical disc degeneration, unspecified cervical region; Z79.891 Long term (current) use of opiate analgesic
CPT/HCPCS: 99211

== ENCOUNTER → 2017-05-21 | Outpatient (CLI) | payer MEDICARE ==
--- NOTE | 2017-05-22 07:47 | MM ---
Reason for exam: additional evaluation requested from abnormal screening. Last mammogram was performed less than 1 month ago. History: Patient is postmenopausal. Family history of breast cancer in aunt. Benign excisional biopsy of the left breast, 2001. Physical Findings: Nurse did not find any significant physical abnormalities on exam. MG 3D Work Up W/Cad LT CC and MLO view(s) were taken of the left breast. Prior study comparison: May 15, 2017, bilateral MG 3d screening mammo w/cad. May 20, 2012, bilateral digital screening mammo w/CAD. Left nodule persists, 6.3cm from nipple. Ultrasound recommended. These results were verbally communicated with the patient and result sheet given to the patient on 05/21/17. ASSESSMENT: Incomplete: need additional imaging evaluation, BI-RAD 0 RECOMMENDATION: Ultrasound of the left breast.
--- NOTE | 2017-05-22 07:48 | USB ---
Reason for exam: additional evaluation requested from abnormal screening. History: Patient is postmenopausal. Family history of breast cancer in aunt. Benign excisional biopsy of the left breast, 2001. US Breast Workup Limited LT Left breast ultrasound demonstrates a 0.73 x 0.34 x 0.48cm lesion at 1 o'clock. These results were verbally communicated with the patient and result sheet given to the patient on 05/21/17. ASSESSMENT: Probably benign, BI-RAD 3 RECOMMENDATION: Follow-up diagnostic mammogram and ultrasound of the left breast in 6 months.
== END | disposition home or self-care (01) ==
LOC: RADMAMWWP 14:20
PROVIDERS: ATTEND Family Medicine
DX: R92.8 Other abnormal and inconclusive findings on diagnostic imaging of breast (principal)
CPT/HCPCS: 77065; 76642; G0279

== ENCOUNTER 2017-06-02 08:12 | Day surgery (SDC) | payer MEDICARE ==
[2017-05-27 16:21] VITALS: BMI 25.7
[~2017-06-02 08:12] MED LIST: LACTATED RINGERS 1,000 ML IV ONE
[2017-06-02] MEDS ORDERED: LACTATED RINGERS 1,000 ML IV ONE (08:15)
[2017-06-02 08:21] VITALS: TEMP 98
[2017-06-02] MEDS ORDERED: LIDOCAINE 1% 20 ML VIAL (10MG/ML) FOR IV START INTRADERMA ONE (08:24)
--- NOTE | 2017-06-02 09:22 | P.PCN ---
Date of Procedure: 06/02/17 Procedure(s) Performed: PREOPERATIVE DIAGNOSIS: 1-Cervical Spondylosis with Facet Arthropathy.without myelopathy 2- cervical degenerative disc disease POSTOPERATIVE DIAGNOSIS:1- Cervical Spondylosis Facet Arthropathy. Without myelopathy 2- cervical degenerative disc disease PROCEDURES: Diagnostic left C2-3 ,C3-4, C4-5 , C5-6, medial branch blocks, with fluoroscopic guidance ANESTHESIA: Local with 1% lidocaine 4 ml ; moderate sedation with Versed. 2 mg , and fentanyl 100 micrograms EBL: Minimal PROCEDURE INDICATION: The patient with neck pain secondary to cervical arthropathy unresponsive to more conservative treatments. PROCEDURE DESCRIPTION / TECHNIQUE: The patient was seen and identified in the preoperative area. Risks, benefits, complications, and alternatives were discussed with the patient, the patient agreed to proceed with the procedure and signed the consent. IV was started. Vital signs remained stable throughout the procedure. Patient was taken to the OR and time out was completed. The patient was placed in the prone position on the procedure table. A pillow was placed under the patients chest to increase the cervical interlaminar space. The cervical area was prepped and draped in the usual sterile fashion. Critical pause was taken. Vital signs were closely monitored during the procedure. Conscious sedation was used during the procedure to decrease patients anxiety. Using cross-table lateral fluoroscopy, the centroid of the trapezoid of Left C2 , C3, C4 , C5 was identified, marked, and localized with 1% lidocaine 1 ml at each level for skin and Sub Q infiltrations . Subsequently, a 22 G 4 spinal needle was advanced guided by fluoroscopy to the centroid of the trapezoid of Left C2 , C3, C4 , C5, . [place] tip position was confirmed at the centroid of the trapezoids of Left C2 , C3 , C4 , C5 with anteroposterior fluoroscopy. Subsequently, 2 ml of preservative-free Bupivacaine 0.5% mixed with Dexamethasone 10 mg and half ml of the mixture was injected after negative aspiration for blood and CSF. [place] was then removed intact . COMPLICATIONS: No acute complications. COMMENTS: DISPOSITION / PLANS: The patient was placed in a supine position and transferred to the recovery area in a stable condition for observation and was discharged from the recovery room after meeting discharge criteria. Home discharge instructions given to the patient by the staff. The patient was reexamined prior to discharge. The patient will schedule a follow up in the clinic in 2-4 weeks.
[2017-06-02] MEDS ORDERED: IV FLUID CONTINUATION 1,000 ML IV ONE (09:25)
[2017-06-02 09:33] VITALS: RESP 16
--- NOTE | 2017-06-02 09:50 | FL ---
Fluoroscopy HISTORY: Pain 16 seconds fluoroscopy time supplied to the referring clinician. 3 intraoperative C-arm images docum ent the procedure. See dictated report from anesthesia.
[2017-06-02 09:51] VITALS: BP 153/72; PULSE 69
== END 2017-06-02 10:10 | disposition home or self-care (01) ==
LOC: ORPAIN 08:12
PROVIDERS: ATTEND Specialist
DX: M47.812 Spondylosis without myelopathy or radiculopathy, cervical region (principal); M50.30 Other cervical disc degeneration, unspecified cervical region; I10 Essential (primary) hypertension
CPT/HCPCS: 64490; 64491; 64492; J2250; J3301; J3010; 99152

== ENCOUNTER 2017-06-10 12:17 | Emergency (ER) | payer MEDICARE ==
[2017-06-10] MEDS ORDERED: MORPHINE SULFATE 5 MG/ML SYRINGE IV STA (12:32)
[2017-06-10 12:53] LABS: Glucose,Whole Blood 100 mg/dL (75-99)
[2017-06-10 12:58] LABS: Basophils % (A) 1 %; Eosinophils # (A) 0.1 k/uL (0-0.7); Eosinophils % (A) 1 %; HCT 41.9 % (34.0-46.0); HGB 13.7 gm/dL (11.4-16.0); Lymphocytes # (A) 2.4 k/uL (1.0-4.8); Lymphocytes % (A) 29 %; MCH 30.6 pg (25.0-35.0); MCHC 32.8 g/dL (31.0-37.0); MCV 93.5 fL (80.0-100.0); Mean Platelet Volume 6.7; Monocytes # (A) 0.6 k/uL (0-1.0); Monocytes % (A) 7 %; Neutrophils # (A) 4.9 k/uL (1.3-7.7); Neutrophils % (A) 60 %; Platelet Count 336 k/uL (150-450); RBC 4.49 m/uL (3.80-5.40); RDW 13.5 % (11.5-15.5); WBC 8.2 k/uL (3.8-10.6)
[2017-06-10 13:11] LABS: ALT 28 U/L (9-52); AST 20 U/L (14-36); Albumin 4.8 g/dL (3.5-5.0); Alkaline Phosphatase 86 U/L (38-126); Anion Gap 12 mmol/L; Blood Urea Nitrogen 13 mg/dL (7-17); Carbon Dioxide 26 mmol/L (22-30); Chloride 92 mmol/L (98-107); Glucose 102 mg/dL (74-99); Potassium 4.8 mmol/L (3.5-5.1); Sodium 130 mmol/L (137-145); Total Bilirubin 0.3 mg/dL (0.2-1.3); Total Protein 7.1 g/dL (6.3-8.2)
[2017-06-10 13:17] LABS: Creatine Kinase 74 U/L (30-135)
[2017-06-10 13:19] LABS: D-Dimer <0.17 mg/L FEU (<0.60)
[2017-06-10 13:23] LABS: Partial Thromboplastin Time 25.3 sec (22.0-30.0); Prothrombin Time 9.6 sec (9.0-12.0)
--- NOTE | 2017-06-10 13:35 | ED ---
General Adult HPI - General Chief complaint: Chest Pain Stated complaint: Chest Pressure, Arm Pain Time Seen by Provider: 06/10/17 12:28 Source: patient, RN notes reviewed, old records reviewed Mode of arrival: ambulatory Limitations: no limitations - History of Present Illness Initial comments: 71-year-old female presents for evaluation of left-sided chest pain. Pain is traveling down her left arm. She was concerned and presented to the emergency department. She complains of neck pain and left arm pain which is chronic. She has received multiple injections for her neck pain. She does complain of this pain as well however the pain in her left arm is worsening and does travel into her left superior chest. Denies any new injury. Denies any central chest pain or pressure. No known history of coronary artery disease. Patient denies focal weakness. Denies numbness or tingling in her left arm. Denies fever or chills. Denies cough. - Related Data Home Medications Medication Instructions Recorded Confirmed Levothyroxine Sodium [Synthroid] 88 mcg PO DAILY 01/12/15 06/10/17 lamoTRIgine [LaMICtal] 400 mg PO HS 11/17/15 06/10/17 ALPRAZolam 1 mg PO QID PRN 11/28/15 06/10/17 Hydrocodone/Acetaminophen [[place] 1 tab PO TID PRN 11/28/15 06/10/17 7.5-325] Cholecalciferol [Vitamin D3] 1,000 unit PO DAILY 03/06/17 06/10/17 Multivitamins, Thera [Multivitamin 1 tab PO DAILY 03/06/17 06/10/17 (formulary)] [place]-3 Fatty Acids/Fish Oil [Fish 1 cap PO DAILY 03/06/17 06/10/17 Oil 1,000 mg Softgel] Calcium Carbonate [Calcium] 1,200 mg PO DAILY 03/21/17 06/10/17 Cyanocobalamin [Vitamin B-12] 500 mcg PO DAILY 03/21/17 06/10/17 Cyclobenzaprine [Flexeril] 10 mg PO BID 03/21/17 06/10/17 Meloxicam [Mobic] 15 mg PO DAILY 03/21/17 06/10/17 Venlafaxine HCl [Effexor XR] 225 mg PO DAILY 03/21/17 06/10/17 amLODIPine [Norvasc] 2.5 mg PO HS 03/21/17 06/10/17 Previous Rx's Medication Instructions Recorded Eszopiclone [Lunesta] 3 mg PO HS #30 tab 11/24/15 Allergies Allergy/AdvReac Type Severity Reaction Status Date / Time No Known Allergies Allergy Verified 06/10/17 12:38 Review of Systems ROS Statement: Those systems with pertinent positive or pertinent negative responses have been documented in the HPI. ROS Other: All systems not noted in ROS Statement are negative. Past Medical History Past Medical History: Hypertension, Osteoarthritis (OA), Thyroid Disorder Additional Past Medical History / Comment(s): left side and lower back pain, History of Any Multi-Drug Resistant Organisms: None Reported Past Surgical History: Bowel Resection, Cholecystectomy, Tonsillectomy Additional Past Surgical History / Comment(s): "face lift", cathi cataracts, Past Anesthesia/Blood Transfusion Reactions: No Reported Reaction Past Psychological History: Anxiety, Bipolar, Depression Smoking Status: Never smoker - Past Family History Father Family Medical History: Coronary Artery Disease (CAD) Additional Family Medical History / Comment(s): at 62 Mother Family Medical History: Cancer Additional Family Medical History / Comment(s): brain cancer Brother(s) Family Medical History: Cancer General Exam Limitations: no limitations General appearance: alert, in no apparent distress Head exam: Present: atraumatic, normocephalic Eye exam: Present: normal appearance, PERRL, EOMI ENT exam: Present: normal exam Neck exam: Present: normal inspection, tenderness (Bilateral paraspinal tenderness.). Absent: meningismus Respiratory exam: Present: normal lung sounds bilaterally, respiratory distress Cardiovascular Exam: Present: regular rate, normal rhythm GI/Abdominal exam: Present: soft. Absent: distended, tenderness Extremities exam: Present: normal inspection, normal capillary refill, other ( Distal pulses intact and symmetric). Absent: pedal edema Neurological exam: Present: alert, oriented X3, CN II-XII intact. Absent: motor sensory deficit Psychiatric exam: Present: normal affect, normal mood Skin exam: Present: warm, dry, intact. Absent: cyanosis, diaphoretic Course Vital Signs 06/10/17 06/10/17 06/10/17 12:18 14:01 15:00 Temperature 97.6 F 97.7 F Pulse Rate 91 71 71 Respiratory 20 18 16 Rate Blood Pressure 197/91 166/78 160/77 O2 Sat by Pulse 98 100 96 Oximetry EKG Findings - EKG Comments: EKG Findings:: EKG shows normal sinus rhythm, RSR prime suggests right ventricular conduction delay, ventricular rate 80, VA interval 146, QRS duration 90, QTC [address] segment elevation Medical Decision Making - Medical Decision Making 71-year-old female presenting with bilateral shoulder pain, patient does have chronic neck pain, she received an injection several weeks ago. Pain is been worsening. Patient presented for evaluation as she did develop some left superior anterior chest pain. This was atypical. Denies any central chest pain. Denies any nausea vomiting or diaphoresis. Patient has no known history of coronary artery disease. Patient's arm pain and shoulder pain is typical of her chronic pain. She took her [place] with minimal relief. She presented for evaluation as she thought she was having a heart attack. EKG shows conduction delay in V1, otherwise no acute signs of ischemia. Chest x-ray is poor history of her with no cardiomegaly, no pneumonia, no vascular congestion. CT cervical spine is obtained for concerns of pain worsening from her cervical arthritis. This does show moderate multilevel disc disease, grade 1 anterolisthesis C4 on C5. Laboratory studies reveal a blood cell count 8.2, hemoglobin 13.7, d-dimer negative, sodium 1:30 the patient does have chronic hyponatremia. Troponin negative. BNP normal. Patient is encouraged to stay in hospital overnight for serial cardiac enzymes and cardiology consult. She prefers to be discharged home. She will return with any worsening or changing symptoms. She will follow -up with her primary care physician. - Lab Data Result diagrams: 06/10/17 12:35 06/10/17 12:35 Lab Results 06/10/17 06/10/17 06/10/17 Range/Units 12:35 12:35 12:35 WBC 8.2 (3.8-10.6) k/uL RBC 4.49 (3.80-5.40) m/uL Hgb 13.7 (11.4-16.0) gm/dL Hct 41.9 (34.0-46.0) % MCV 93.5 (80.0-100.0) fL MCH 30.6 (25.0-35.0) pg MCHC 32.8 (31.0-37.0) g/dL RDW 13.5 (11.5-15.5) % Plt Count 336 (150-450) k/uL Neutrophils % 60 % Lymphocytes % 29 % Monocytes % 7 % Eosinophils % 1 % Basophils % 1 % Neutrophils # 4.9 (1.3-7.7) k/uL Lymphocytes # 2.4 (1.0-4.8) k/uL Monocytes # 0.6 (0-1.0) k/uL Eosinophils # 0.1 (0-0.7) k/uL Basophils # 0.0 (0-0.2) k/uL PT (9.0-12.0) sec INR (<1.2) APTT (22.0-30.0) sec D-Dimer (<0.60) mg/L FEU Sodium 130 L (137-145) mmol/L Potassium 4.8 (3.5-5.1) mmol/L Chloride 92 L (98-107) mmol/L Carbon Dioxide 26 (22-30) mmol/L Anion Gap 12 mmol/L BUN 13 (7-17) mg/dL Creatinine 0.95 (0.52-1.04) mg/dL Est GFR (MDRD) Af Amer >60 (>60 ml/min/1.73 sqM) Est GFR (MDRD) Non-Af 58 (>60 ml/min/1.73 sqM) Glucose 102 H (74-99) mg/dL POC Glucose (mg/dL) (75-99) mg/dL POC Glu Soaking Pit Operator ID Calcium 10.0 (8.4-10.2) mg/dL Magnesium 2.0 (1.6-2.3) mg/dL Total Bilirubin 0.3 (0.2-1.3) mg/dL AST 20 (14-36) U/L ALT 28 (9-52) U/L Alkaline Phosphatase 86 (38-126) U/L Total Creatine Kinase 74 (30-135) U/L CK-MB (CK-2) 1.0 (0.0-2.4) ng/mL CK-MB (CK-2) Rel Index 1.4 Troponin I <0.012 (0.000-0.034) ng/mL NT-Pro-B Natriuret Pep pg/mL Total Protein 7.1 (6.3-8.2) g/dL Albumin 4.8 (3.5-5.0) g/dL 06/10/17 06/10/17 06/10/17 Range/Units 12:35 12:35 12:37 WBC (3.8-10.6) k/uL RBC (3.80-5.40) m/uL Hgb (11.4-16.0) gm/dL Hct (34.0-46.0) % MCV (80.0-100.0) fL MCH (25.0-35.0) pg MCHC (31.0-37.0) g/dL RDW (11.5-15.5) % Plt Count (150-450) k/uL Neutrophils % % Lymphocytes % % Monocytes % % Eosinophils % % Basophils % % Neutrophils # (1.3-7.7) k/uL Lymphocytes # (1.0-4.8) k/uL Monocytes # (0-1.0) k/uL Eosinophils # (0-0.7) k/uL Basophils # (0-0.2) k/uL PT 9.6 (9.0-12.0) sec INR 1.0 (<1.2) APTT 25.3 (22.0-30.0) sec D-Dimer <0.17 (<0.60) mg/L FEU Sodium (137-145) mmol/L Potassium (3.5-5.1) mmol/L Chloride (98-107) mmol/L Carbon Dioxide (22-30) mmol/L Anion Gap mmol/L BUN (7-17) mg/dL Creatinine (0.52-1.04) mg/dL Est GFR (MDRD) Af Amer (>60 ml/min/1.73 sqM) Est GFR (MDRD) Non-Af (>60 ml/min/1.73 sqM) Glucose (74-99) mg/dL POC Glucose (mg/dL) 100 H (75-99) mg/dL POC Glu Soaking Pit Operator ID Tra Mcgrath Calcium (8.4-10.2) mg/dL Magnesium (1.6-2.3) mg/dL Total Bilirubin (0.2-1.3) mg/dL AST (14-36) U/L ALT (9-52) U/L Alkaline Phosphatase (38-126) U/L Total Creatine Kinase (30-135) U/L CK-MB (CK-2) (0.0-2.4) ng/mL CK-MB (CK-2) Rel Index Troponin I (0.000-0.034) ng/mL NT-Pro-B Natriuret Pep 48 pg/mL Total Protein (6.3-8.2) g/dL Albumin (3.5-5.0) g/dL Disposition Clinical Impression: Chest pain Disposition: HOME SELF-CARE Condition: Fair Instructions: Chest Pain (ED) Referrals: Sajan Martin DO [Primary Care Provider] - 1-2 days Time of Disposition: 15:10
[2017-06-10 13:38] LABS: Troponin I <0.012 ng/mL (0.000-0.034)
--- NOTE | 2017-06-10 14:23 | XR ---
EXAMINATION TYPE: XR chest 2V DATE OF EXAM: 06/10/2017 COMPARISON: Prior chest x-ray January 12, 2017. HISTORY: Chest pain with tingling in arms and neck. TECHNIQUE: Frontal and lateral views of the chest are obtained. FINDINGS: Poor inspiration is seen on current study. There is chronic parenchymal change without susp icious focal air space opacity, pleural effusion, or pneumothorax seen. The cardiac silhouette size is enlarged on current study with atherosclerotic aorta. The osseous structures are intact. IMPRESSION: Poor inspiration likely accounting for new cardiomegaly, chronic parenchymal change with out acute pulmonary process.
--- NOTE | 2017-06-10 14:24 | CT ---
EXAMINATION TYPE: CT cervical spine wo con DATE OF EXAM: 06/10/2017 COMPARISON: 01/12/2017 HISTORY: Bilateral arm and shoulder pain CT DLP: 321.1 mGycm. Automated Exposure Control for Dose Reduction was Utilized. TECHNIQUE: CT scan of the cervical spine is obtained without contrast, axial images are obtained, sa gittal and coronal reformatted images are also reviewed. FINDINGS: Cervical spine is visualized in its entirety from C1 through upper thoracic levels, demonst rates satisfactory vertebral body heights. There is grade 1 anterolisthesis of C4 on C5 with associat ed degenerative change at the C4-C5 vertebral level. No evidence of fracture or facet malalignment th erefore this is likely degenerative in nature. Moderate multilevel degenerative disc disease of the c ervical spine is noted most significant at C4-C7. Prevertebral soft tissue appears within normal limi ts. The C1-C2 articulation is within normal limits on the coronal images. Review of axial images shows no significant spinal canal stenosis at any cervical level. At C3-C4 the re is mild left neural foraminal narrowing, at C4-C5 there is mild bilateral neural foraminal narrowi ng and at C5-C6 there is mild bilateral neural foraminal narrowing all attributable to facet arthropa thy and uncovertebral hypertrophy. Thyroid gland is felt within normal limits. Visualized lung apices demonstrate no evidence of pneumothorax. Right greater than left apical pleural parenchymal scarring is present. IMPRESSION: 1. No acute fracture or dislocation evident in the cervical spine. 2. Moderate multilevel degenerative disc disease as described above. 3. Grade 1 anterolisthesis of C4 and C5, likely degenerative in nature.
[2017-06-10 15:03] VITALS: RESP 16
[2017-06-10 15:53] VITALS: BP 141/69; PULSE 80; TEMP 97
== END 2017-06-10 15:58 | disposition home or self-care (01) ==
LOC: EC 12:17
DX: R07.9 Chest pain, unspecified (principal); M43.12 Spondylolisthesis, cervical region; M79.602 Pain in left arm; I10 Essential (primary) hypertension; E07.9 Disorder of thyroid, unspecified; F31.9 Bipolar disorder, unspecified; F41.9 Anxiety disorder, unspecified; Z79.1 Long term (current) use of non-steroidal anti-inflammatories (NSAID); Z79.899 Other long term (current) drug therapy; Z82.49 Family history of ischemic heart disease and other diseases of the circulatory system
CPT/HCPCS: 36415; 93005; 85379; 83880; 80053; 82550; 82553; 83735; 84484; 85025; 85610; 85730; 71046; 72125; 99285; 96374; J2274

== ENCOUNTER → 2017-09-11 | Outpatient (CLI) | payer MEDICARE ==
[2017-09-11 14:32] VITALS: BP 139/69; PULSE 78; RESP 18
--- NOTE | 2017-09-11 14:52 | P.PAINPG ---
Subjective Progress Note Date: 09/11/17 This is a 72-year-old woman with a history of chronic neck pain who also complains of bilateral arm pain progressing from her neck. She has recently started physical therapy for this. She presents today requesting a non-opiate pain medication. She declines to have any sort of injection therapy. She denies any bowel or bladder dysfunction. She denies having any symptoms in her legs. Objective - Vital Signs Vital signs: Vital Signs Temp Pulse 78 09/11/17 14:24 Resp 18 09/11/17 14:24 BP 139/69 09/11/17 14:24 Pulse Ox 92 L 09/11/17 14:24 Intake & Output 09/10/17 09/11/17 09/11/17 18:59 06:59 18:59 Weight 68.039 kg Physical Examination : 1-Constitutional : Cooperative , not in acute distress . 2-HEENT : No obvious masses. Normocephalic. 3- Respiratory : Chest clear to auscultation. 4- Cardiovascular : regular rate and rhythm. 5- Gastrointestinal: abdomen soft no tenderness , bowel sounds positive all four quadrants, no organomegaly . 6- Genitourinary : Deferred . 7- Integumentary : No cellulitis , no ulcers, normal skin turgor, no cyanotic. 8- neurologic : No focal motor deficits in the upper extremities. No focal sensory deficits in the upper extremity. 9- psychatric : alert, oriented, appropriate affect , intact judgment and insight . Affect congruent with situation. 10- musculoskeltal: normal gait, normal strength in the upper extremities. Normal range of motion for shoulder flexion and extension. Neck flexion and extension are within expected range given age. Assessment and Plan Plan: Impression: Cervical radiculopathy Cervical spondylosis Follow-up plan: Medications: I will trial the patient on gabapentin. Her the risks and benefits of this medicine. She'll start at a relatively low dose, 100 mg by mouth 3 times a day. This could be titrated future months. She will continue on her benzodiazepines and opiates as prescribed by her primary care physician. Procedures: Patient has declined any further interventional therapy. Referrals: None Additional tests ordered: None Next follow-up visit: One month for medication management PQRS Measure Charge Sheet PQRS Narrative: Smoking Status Never smoker Do You Want the Pneumonia Vaccine Up to Date Vaccine AT THIS TIME? Blood Pressure 139/69 Pain Intensity [Generalized] 4 Scale Used Numeric (1 - 10) Hx Alcohol Use (MH) Yes: rare Home Medications: Ambulatory Orders Levothyroxine Sodium [Synthroid] 88 mcg PO DAILY 01/12/15 lamoTRIgine [LaMICtal] 400 mg PO HS 11/17/15 Eszopiclone [Lunesta] 3 mg PO HS #30 tab 11/24/15 ALPRAZolam 1 mg PO QID PRN 11/28/15 Hydrocodone/Acetaminophen [[place] 7.5-325] 1 tab PO TID PRN 11/28/15 Cholecalciferol [Vitamin D3] 1,000 unit PO DAILY 03/06/17 Multivitamins, Thera [Multivitamin (formulary)] 1 tab PO DAILY 03/06/17 [place]-3 Fatty Acids/Fish Oil [Fish Oil 1,000 mg Softgel] 1 cap PO DAILY Calcium Carbonate [Calcium] 1,200 mg PO DAILY 03/21/17 Cyanocobalamin [Vitamin B-12] 500 mcg PO DAILY 03/21/17 Cyclobenzaprine [Flexeril] 10 mg PO BID 03/21/17 Meloxicam [Mobic] 15 mg PO DAILY 03/21/17 Venlafaxine HCl [Effexor XR] 225 mg PO DAILY 03/21/17 amLODIPine [Norvasc] 2.5 mg PO HS 03/21/17 Gabapentin [Neurontin] 100 mg PO TID #90 cap 09/11/17 Controlled Substance Measures - Controlled Substance Measures Is patient prescribed a controlled substance at discharge?: No If prescribed controlled substance>3 days was MAPS reviewed?: No When asked, does pt state using other controlled substances?: No
== END | disposition home or self-care (01) ==
LOC: PNWHC3 14:10
PROVIDERS: ATTEND Pain Medicine Pain Medicine
DX: G89.29 Other chronic pain (principal); M54.2 Cervicalgia; M79.622 Pain in left upper arm; M79.621 Pain in right upper arm; M47.22 Other spondylosis with radiculopathy, cervical region; Z79.899 Other long term (current) drug therapy; Z79.891 Long term (current) use of opiate analgesic
CPT/HCPCS: 99211

== ENCOUNTER → 2017-10-28 | Outpatient (CLI) | payer MEDICARE ==
[2017-10-28 16:06] LABS: Vitamin D 25 Hydroxy 28.2 ng/mL (30.0-100.0)
[2017-10-28 17:33] LABS: Hemoglobin A1C 5.4 % (4.0-6.0)
== END | disposition home or self-care (01) ==
LOC: LABWHC1 10:34
PROVIDERS: ATTEND Psychiatry & Neurology Neurology
DX: M47.812 Spondylosis without myelopathy or radiculopathy, cervical region (principal)
CPT/HCPCS: 36415; 82306; 82607; 83036

== ENCOUNTER → 2017-10-31 | Outpatient (CLI) | payer MEDICARE ==
--- NOTE | 2017-10-31 08:38 | US ---
EXAMINATION TYPE: US abdomen complete DATE OF EXAM: 10/31/2017 COMPARISON: NONE CLINICAL HISTORY: R10.12 Left upper quadrant pain. Bowel surgery 2 years ago. Cholecystectomy. Histor y of left renal cyst. LUQ pain EXAM MEASUREMENTS: Liver Length: 19.4 cm Gallbladder Wall: Surgically absent CBD: 0.6 cm Spleen: 7.9 cm Right Kidney: 11.2 x 3.6 x 4.1 cm Left Kidney: 10.4 x 4.7 x 4.3 cm Pancreas: visualized portions appear wnl Liver: enlarged Gallbladder: Surgically absent Evidence for sonographic Demarco's sign: no CBD: wnl Spleen: wnl Right Kidney: prominent renal pelvis Left Kidney: Complex cystic area medial = 4.3 x 4.1 x 5.1cm Upper IVC: wnl Abd Aorta: wnl IMPRESSION: 1. Complex cyst left kidney. Follow-up examinations are recommended. This could be further evaluated with CT with contrast.
== END | disposition home or self-care (01) ==
LOC: RADUSWWP 07:33
PROVIDERS: ATTEND Family Medicine
DX: N28.1 Cyst of kidney, acquired (principal)
CPT/HCPCS: 76700

== ENCOUNTER → 2017-11-06 | Outpatient (CLI) | payer MEDICARE ==
[2017-11-06 12:23] VITALS: BP 124/58; PULSE 91; RESP 16
--- NOTE | 2017-11-06 12:42 | P.PN ---
Subjective Progress Note Date: 11/06/17 Principal diagnosis: Neck pain This is a 72-year-old female with history of neck pain with radiation to the occipital area and also down to the shoulders. Her pain is worse in the occipital area than down her shoulders. She occasionally feels numbness in both hands. The patient denies any bowel or bladder dysfunction except for stress urinary incontinence. The patient used to take [place] 7.5 mg twice a day and which helps control her pain over her physician to coordinate [place] and right now she takes Neurontin 100 mg 3 times a day. The patient refuses to have any injections done on the cervical spine. She reports that she had one day of pain relief after cervical medial branch block. Objective - Vital Signs Vital signs: Vital Signs Temp Pulse 91 11/06/17 12:15 Resp 16 11/06/17 12:15 BP 124/58 11/06/17 12:15 Pulse Ox 95 11/06/17 12:15 Intake & Output 11/05/17 11/06/17 11/06/17 18:59 06:59 18:59 Weight 68.039 kg - Constitutional General appearance: Present: average body habitus - EENT Eyes: Present: PERRLA - Respiratory Respiratory: bilateral: CTA - Cardiovascular Heart sounds: normal: S1, S2 - Neurologic Neurologic: Present: CNII-XII intact - Psychiatric Psychiatric: Present: A&O x's 3, appropriate affect, intact judgment & insight - Additional findings Additional findings: Neuro exam of the upper extremities showed normal and symmetrical muscle strength and normal and symmetrical deep tendon reflexes. She has decreased range of motion of the cervical spine especially to the right side. She has tenderness in the cervical paravertebral area bilaterally.
== END | disposition home or self-care (01) ==
LOC: PNWHC3 12:07
PROVIDERS: ATTEND Anesthesiology
DX: M54.2 Cervicalgia (principal); R20.0 Anesthesia of skin; Z79.891 Long term (current) use of opiate analgesic; Z79.899 Other long term (current) drug therapy
CPT/HCPCS: 99211

== ENCOUNTER → 2017-11-20 | Outpatient (CLI) | payer MEDICARE ==
--- NOTE | 2017-11-20 14:01 | MR ---
MRI CERVICAL SPINE: CLINICAL HISTORY: Spondylosis without myelopathy per order. Headache with neck pain for years per pat ient. TECHNIQUE: Multiplanar, multisequence imaging of the cervical spine is performed without IV contrast. COMPARISON: MRI cervical spine September 28, 2016. CT cervical spine June 10, 2017 FINDINGS: Coronal images redemonstrate the levoconvex scoliosis centered in the upper thoracic spine. Sagittal images of the cervical spine show the craniocervical junction to remain within normal limit s. The cervical and upper thoracic spinal cord is normal in course, caliber, and signal. Vertebral alignment is stable and satisfactory. The vertebral body heights remain normal. There is moderate to advanced disc space narrowing C4-C5 and C5-C6 levels redemonstrated. The bone marrow signal intensit y is within normal limits. Axial images at C2-C3 level is felt to remain within normal limits. Axial images at C3-C4 level show broad-based right paracentral disc protrusion effacing anterolateral thecal sac on axial image 32 no significant change from prior. There are mild left-sided uncovertebr al facet degenerative changes redemonstrated. Bilateral neural foramina are patent. Axial images at C4-C5 level show uncovertebral facet degenerative changes bilaterally and mild broad- based right paracentral disc protrusion, there is mild bilateral neural foraminal narrowing and mild effacement of the anterior thecal sac. Axial images at C5-C6 level show broad-based posterior disc protrusion effacing anterior thecal sac a nd causing mild to moderate right greater than left neural foraminal narrowing. No significant change from prior. Axial images at C6-C7 level show posterior spur disc complex minimally effacing anterior thecal sac, bilateral neural foramina are patent. Axial images at C7-T1 level are felt to remain within normal limits. There is partial visualization of thin-walled cystic lesion axial image 1 posterior to left carotid v essel not significantly changed in appearance from prior MRI. IMPRESSION: Multilevel degenerative changes in the cervical spine as detailed above without significa nt progression or change from prior MRI.
== END | disposition home or self-care (01) ==
LOC: RADMRIMAIN 11:41
PROVIDERS: ATTEND Psychiatry & Neurology Neurology
DX: M47.812 Spondylosis without myelopathy or radiculopathy, cervical region (principal)
CPT/HCPCS: 72141

== ENCOUNTER 2018-01-26 12:10 | Emergency (ER) | payer MEDICARE ==
[2018-01-26 12:19] VITALS: TEMP 97.9
[2018-01-26 14:10] LABS: Basophils % (A) 1 %; Eosinophils # (A) 0.2 k/uL (0-0.7); Eosinophils % (A) 3 %; HCT 42.6 % (34.0-46.0); HGB 14.2 gm/dL (11.4-16.0); Lymphocytes # (A) 1.8 k/uL (1.0-4.8); Lymphocytes % (A) 28 %; MCH 31.1 pg (25.0-35.0); MCHC 33.3 g/dL (31.0-37.0); MCV 93.5 fL (80.0-100.0); Mean Platelet Volume 6.1; Monocytes # (A) 0.7 k/uL (0-1.0); Monocytes % (A) 10 %; Neutrophils # (A) 3.6 k/uL (1.3-7.7); Neutrophils % (A) 55 %; Platelet Count 328 k/uL (150-450); RBC 4.55 m/uL (3.80-5.40); RDW 13.2 % (11.5-15.5); WBC 6.5 k/uL (3.8-10.6)
[2018-01-26 14:20] LABS: Calcium 9.8 mg/dL (8.4-10.2); Potassium 4.2 mmol/L (3.5-5.1); Total Bilirubin 0.4 mg/dL (0.2-1.3); Total Protein 7.7 g/dL (6.3-8.2)
[2018-01-26 14:29] LABS: Creatine Kinase 37 U/L (30-135)
[2018-01-26 14:43] LABS: Troponin I <0.012 ng/mL (0.000-0.034)
[2018-01-26] MEDS ORDERED: SODIUM CHLORIDE 0.9% 500 ML IV STA (15:24)
--- NOTE | 2018-01-26 15:27 | ED ---
General Adult HPI - General Chief complaint: Recheck/Abnormal Lab/Rx Stated complaint: Headache Time Seen by Provider: 01/26/18 15:07 Source: patient, RN notes reviewed Mode of arrival: ambulatory Limitations: no limitations - History of Present Illness Initial comments: Patient is a pleasant 72-year-old female presenting to the emergency department concerned that she may be having a reaction to her hair dye. Patient has seen her doctor for this. Patient did finish steroids. Patient has had discomfort of her head and tingling all over since 9 days ago. Symptoms seemed to improve a few days ago and then returned again today. Headache started this morning and progressed over several hours. Discomfort is the top of the head. feels tingly all over. Patient does admit to chronic anxiety. No weakness. No confusion. No visual change. - Related Data Home Medications Medication Instructions Recorded Confirmed Levothyroxine Sodium [Synthroid] 88 mcg PO DAILY 01/12/15 11/06/17 lamoTRIgine [LaMICtal] 400 mg PO HS 11/17/15 11/06/17 ALPRAZolam 1 mg PO QID PRN 11/28/15 11/06/17 Cholecalciferol [Vitamin D3] 1,000 unit PO DAILY 03/06/17 11/06/17 Multivitamins, Thera [Multivitamin 1 tab PO DAILY 03/06/17 11/06/17 (formulary)] [place]-3 Fatty Acids/Fish Oil [Fish 1 cap PO DAILY 03/06/17 11/06/17 Oil 1,000 mg Softgel] Calcium Carbonate [Calcium] 1,200 mg PO DAILY 03/21/17 11/06/17 Cyanocobalamin [Vitamin B-12] 500 mcg PO DAILY 03/21/17 11/06/17 Cyclobenzaprine [Flexeril] 10 mg PO BID 03/21/17 11/06/17 Meloxicam [Mobic] 15 mg PO DAILY 03/21/17 11/06/17 Venlafaxine HCl [Effexor XR] 225 mg PO DAILY 03/21/17 11/06/17 amLODIPine [Norvasc] 2.5 mg PO HS 03/21/17 11/06/17 Previous Rx's Medication Instructions Recorded Eszopiclone [Lunesta] 3 mg PO HS #30 tab 11/24/15 Gabapentin [Neurontin] 100 mg PO TID #90 cap 09/11/17 Allergies Allergy/AdvReac Type Severity Reaction Status Date / Time No Known Allergies Allergy Verified 01/26/18 12:18 Review of Systems ROS Statement: Those systems with pertinent positive or pertinent negative responses have been documented in the HPI. ROS Other: All systems not noted in ROS Statement are negative. Constitutional: Denies: fever Eyes: Denies: eye pain ENT: Denies: ear pain Respiratory: Denies: cough Cardiovascular: Denies: chest pain Endocrine: Denies: fatigue Gastrointestinal: Denies: abdominal pain Genitourinary: Denies: dysuria Musculoskeletal: Denies: back pain Skin: Denies: rash Neurological: Reports: headache, paresthesias. Denies: weakness, confusion Past Medical History Past Medical History: Hypertension, Osteoarthritis (OA), Thyroid Disorder Additional Past Medical History / Comment(s): left side and lower back pain, History of Any Multi-Drug Resistant Organisms: None Reported Past Surgical History: Bowel Resection, Cholecystectomy, Tonsillectomy Additional Past Surgical History / Comment(s): "face lift", cathi cataracts, Past Anesthesia/Blood Transfusion Reactions: No Reported Reaction Past Psychological History: Anxiety, Bipolar, Depression Smoking Status: Never smoker Past Alcohol Use History: None Reported Past Drug Use History: None Reported - Past Family History Father Family Medical History: Coronary Artery Disease (CAD) Additional Family Medical History / Comment(s): at 62 Mother Family Medical History: Cancer Additional Family Medical History / Comment(s): brain cancer Brother(s) Family Medical History: Cancer General Exam Limitations: no limitations General appearance: alert, in no apparent distress Head exam: Present: atraumatic, other (No tenderness over the temporal artery) Eye exam: Present: normal appearance, PERRL, EOMI. Absent: nystagmus ENT exam: Present: normal oropharynx Neck exam: Present: normal inspection Respiratory exam: Present: normal lung sounds bilaterally Cardiovascular Exam: Present: regular rate, normal rhythm GI/Abdominal exam: Present: soft. Absent: tenderness Extremities exam: Present: normal inspection Neurological exam: Present: alert, oriented X3, CN II-XII intact. Absent: motor sensory deficit Expanded Neurological exam: Present: protecting the airway Patient oriented to: Present: person, place, time Speech: Present: fluid speech Cranial nerves: EOM's Intact: Normal, Facial Sensation: Normal Sensory exam: Upper Extremity Light Touch: Normal, Lower Extremity Light Touch: Normal Motor strength exam: RUE: 5, LUE: 5, RLE: 5, LLE: 5 Eye Response: (4) open spontaneously Motor Response: (6) obeys commands Verbal Response: (5) oriented Psychiatric exam: Present: normal affect, normal mood Skin exam: Present: normal color Course Vital Signs 01/26/18 12:16 Temperature 97.9 F Pulse Rate 85 Respiratory 20 Rate Blood Pressure 152/83 O2 Sat by Pulse 98 Oximetry Medical Decision Making - Medical Decision Making Patient reevaluated and sitting up at bedside. Patient requesting discharge home. Patient symptom-free at this time. Patient is updated on results - Lab Data Result diagrams: 01/26/18 13:55 01/26/18 13:55 Lab Results 01/26/18 01/26/18 01/26/18 Range/Units 13:55 13:55 13:55 WBC 6.5 (3.8-10.6) k/uL RBC 4.55 (3.80-5.40) m/uL Hgb 14.2 (11.4-16.0) gm/dL Hct 42.6 (34.0-46.0) % MCV 93.5 (80.0-100.0) fL MCH 31.1 (25.0-35.0) pg MCHC 33.3 (31.0-37.0) g/dL RDW 13.2 (11.5-15.5) % Plt Count 328 (150-450) k/uL Neutrophils % 55 % Lymphocytes % 28 % Monocytes % 10 % Eosinophils % 3 % Basophils % 1 % Neutrophils # 3.6 (1.3-7.7) k/uL Lymphocytes # 1.8 (1.0-4.8) k/uL Monocytes # 0.7 (0-1.0) k/uL Eosinophils # 0.2 (0-0.7) k/uL Basophils # 0.0 (0-0.2) k/uL ESR (0-20) mm/hr PT (9.0-12.0) sec INR (<1.2) APTT (22.0-30.0) sec Sodium 132 L (137-145) mmol/L Potassium 4.2 (3.5-5.1) mmol/L Chloride 93 L (98-107) mmol/L Carbon Dioxide 26 (22-30) mmol/L Anion Gap 13 mmol/L BUN 15 (7-17) mg/dL Creatinine 0.79 (0.52-1.04) mg/dL Est GFR (CKD-EPI)AfAm 89 (>60 ml/min/1.73 sqM) Est GFR (CKD-EPI)NonAf 77 (>60 ml/min/1.73 sqM) Glucose 90 (74-99) mg/dL Calcium 9.8 (8.4-10.2) mg/dL Total Bilirubin 0.4 (0.2-1.3) mg/dL AST 23 (14-36) U/L ALT 20 (9-52) U/L Alkaline Phosphatase 85 (38-126) U/L Total Creatine Kinase 37 (30-135) U/L CK-MB (CK-2) 1.0 (0.0-2.4) ng/mL CK-MB (CK-2) Rel Index 2.7 Troponin I <0.012 (0.000-0.034) ng/mL Total Protein 7.7 (6.3-8.2) g/dL Albumin 5.0 (3.5-5.0) g/dL 01/26/18 01/26/18 Range/Units 13:55 15:34 WBC (3.8-10.6) k/uL RBC (3.80-5.40) m/uL Hgb (11.4-16.0) gm/dL Hct (34.0-46.0) % MCV (80.0-100.0) fL MCH (25.0-35.0) pg MCHC (31.0-37.0) g/dL RDW (11.5-15.5) % Plt Count (150-450) k/uL Neutrophils % % Lymphocytes % % Monocytes % % Eosinophils % % Basophils % % Neutrophils # (1.3-7.7) k/uL Lymphocytes # (1.0-4.8) k/uL Monocytes # (0-1.0) k/uL Eosinophils # (0-0.7) k/uL Basophils # (0-0.2) k/uL ESR 5 (0-20) mm/hr PT 10.0 (9.0-12.0) sec INR 1.0 (<1.2) APTT 25.0 (22.0-30.0) sec Sodium (137-145) mmol/L Potassium (3.5-5.1) mmol/L Chloride (98-107) mmol/L Carbon Dioxide (22-30) mmol/L Anion Gap mmol/L BUN (7-17) mg/dL Creatinine (0.52-1.04) mg/dL Est GFR (CKD-EPI)AfAm (>60 ml/min/1.73 sqM) Est GFR (CKD-EPI)NonAf (>60 ml/min/1.73 sqM) Glucose (74-99) mg/dL Calcium (8.4-10.2) mg/dL Total Bilirubin (0.2-1.3) mg/dL AST (14-36) U/L ALT (9-52) U/L Alkaline Phosphatase (38-126) U/L Total Creatine Kinase (30-135) U/L CK-MB (CK-2) (0.0-2.4) ng/mL CK-MB (CK-2) Rel Index Troponin I (0.000-0.034) ng/mL Total Protein (6.3-8.2) g/dL Albumin (3.5-5.0) g/dL - Radiology Data Radiology results: report reviewed (Computed tomography scan of the brain and CT angios of head and neck show no acute abnormality.) Disposition Clinical Impression: Headache Disposition: HOME SELF-CARE Condition: Stable Instructions: Acute Headache (ED) Additional Instructions: Please follow-up with primary care physician in the next day or 2 for recheck. Return for increased pain, weakness, confusion, worsening or changing symptoms or other concerns. Is patient prescribed a controlled substance at d/c from ED?: No Referrals: Sajan Martin DO [Primary Care Provider] - 1-2 days Time of Disposition: 17:46
--- NOTE | 2018-01-26 17:10 | CT ---
EXAMINATION: CT brain wo con DATE AND TIME: 01/26/2018 4:47 PM CLINICAL INDICATION: morrell; headache TECHNIQUE: Standard departmental protocol. 1081.6 COMPARISON: CT 08/07/2015 FINDINGS: The calvarium is intact. There is no intracranial hemorrhage. There is no intracranial mass or mass effect. No definite new intra-axial or extra-axial attenuation defect. The paranasal sinuses, middle ear cavities, and mastoid sinus air cells are clear. The orbits are unremarkable. IMPRESSION: NO ACUTE PROCESS.
--- NOTE | 2018-01-26 17:34 | CT ---
EXAMINATION TYPE: CT angio head neck with contrast and with 3-D reconstruction renderings. DATE OF EXAM: 01/26/2018 HISTORY: headache COMPARISON: CT noncontrast 01/26/2018 4:[address] DLP: 197.7 mGycm. Automated Exposure Control for Dose Reduction was Utilized. TECHNIQUE: CTA scan of the neck is performed with IV Contrast, patient injected with 65mL mL of Isov ue 370, axial images are obtained, coronal and sagittal reformatted images are reviewed. Three-D flip nstructed images are created on an independent workstation and reviewed. FINDINGS: Carotid systems: Negative for hemodynamically significant stenosis or other abnormality in the neck. No intracranial significant stenosis or aneurysm. Vertebral-basilar system: Negative for hemodynamically significant stenoses in the neck.No intracrani al significant stenosis or aneurysm. Other: No incidental findings. IMPRESSION: No acute process.
[2018-01-26 17:55] VITALS: BP 147/82; PULSE 86; RESP 16
== END 2018-01-26 17:52 | disposition home or self-care (01) ==
LOC: EC 12:10
DX: R51 Headache (principal); R20.2 Paresthesia of skin; I10 Essential (primary) hypertension; E07.9 Disorder of thyroid, unspecified; M19.90 Unspecified osteoarthritis, unspecified site; F31.9 Bipolar disorder, unspecified; F41.9 Anxiety disorder, unspecified; Z79.1 Long term (current) use of non-steroidal anti-inflammatories (NSAID); Z79.899 Other long term (current) drug therapy
CPT/HCPCS: 36415; 93005; 80053; 85652; 82550; 82553; 84484; 85025; 85610; 85730; 70496; 70450; 70498; 99284; Q9967

== ENCOUNTER 2019-01-04 12:03 | Emergency (ER) | payer MEDICARE ==
[2019-01-04] MEDS ORDERED: SODIUM CHLORIDE 0.9% 1,000 ML IV STA (13:03)
--- NOTE | 2019-01-04 13:13 | ED ---
Abdominal Pain HPI - General Chief Complaint: Abdominal Pain Stated Complaint: pain on right side Time Seen by Provider: 01/04/19 12:18 Source: patient Mode of arrival: ambulatory Limitations: no limitations - History of Present Illness Initial Comments: Patient is 73-year-old male presenting to emergency Department with multiple chief complaints. Patient reports she has developed intermittent diarrhea approximately one month ago and has not resolved. Patient denies international travels prior to the onset of the diarrhea or eating food that has been exposed to room temperature for prolonged periods of time. Patient reports taking Imodium intermittently but states that she does not want to take it. Patient denies any recent changes in medication or use of antibiotics. Patient denies hemoptysis, hematuria, hematochezia or melena. Patient denies any abdominal bloating, abdominal pain or back pain. Patient denies fevers, night sweats or chills. Patient reports a cervical spine surgery on April 2018 and has intermittent bilateral upper extremity weakness for about 3 months no numbness or tingling. Patient reports she is scheduled for imaging at [place]. Patient denies any exacerbating or alleviating factors. Patient also reports left-sided hip pain that is exacerbated with ambulation and started approximately 4 days ago. Patient reports a history of osteoarthritis and takes Tylenol twice daily. - Related Data Home Medications Medication Instructions Recorded Confirmed Levothyroxine Sodium [Synthroid] 88 mcg PO DAILY 01/12/15 01/04/19 lamoTRIgine [LaMICtal] 400 mg PO HS 11/17/15 01/04/19 ALPRAZolam 1 mg PO QID PRN 11/28/15 01/04/19 Cholecalciferol [Vitamin D3] 1,000 unit PO DAILY 03/06/17 01/04/19 [place]-3 Fatty Acids/Fish Oil [Fish 1 cap PO DAILY 03/06/17 01/04/19 Oil 1,000 mg Softgel] Calcium Carbonate [Calcium] 1,200 mg PO DAILY 03/21/17 01/04/19 Cyclobenzaprine [Flexeril] 10 mg PO BID 03/21/17 01/04/19 Meloxicam [Mobic] 15 mg PO DAILY 03/21/17 01/04/19 Venlafaxine HCl [Effexor XR] 225 mg PO DAILY 03/21/17 01/04/19 amLODIPine [Norvasc] 2.5 mg PO HS 03/21/17 01/04/19 Previous Rx's Medication Instructions Recorded Eszopiclone [Lunesta] 3 mg PO HS #30 tab 11/24/15 Gabapentin [Neurontin] 100 mg PO TID #90 cap 09/11/17 Levofloxacin [Levaquin] 500 mg PO DAILY 3 Days #6 tab 01/04/19 Allergies Allergy/AdvReac Type Severity Reaction Status Date / Time No Known Allergies Allergy Verified 01/04/19 12:25 Review of Systems ROS Statement: Those systems with pertinent positive or pertinent negative responses have been documented in the HPI. ROS Other: All systems not noted in ROS Statement are negative. Past Medical History Past Medical History: Hypertension, Osteoarthritis (OA), Thyroid Disorder Additional Past Medical History / Comment(s): left side and lower back pain, History of Any Multi-Drug Resistant Organisms: None Reported Past Surgical History: Bowel Resection, Cholecystectomy, Tonsillectomy Additional Past Surgical History / Comment(s): "face lift", cathi cataracts, neck surgery Past Anesthesia/Blood Transfusion Reactions: No Reported Reaction Past Psychological History: Anxiety, Bipolar, Depression Smoking Status: Never smoker Past Alcohol Use History: None Reported Past Drug Use History: None Reported - Past Family History Father Family Medical History: Coronary Artery Disease (CAD) Additional Family Medical History / Comment(s): at 62 Mother Family Medical History: Cancer Additional Family Medical History / Comment(s): brain cancer Brother(s) Family Medical History: Cancer General Exam Limitations: no limitations General appearance: alert, in no apparent distress Head exam: Present: atraumatic, normocephalic, normal inspection Eye exam: Present: normal appearance, PERRL, EOMI. Absent: conjunctival injection Pupils: Present: normal accommodation ENT exam: Present: normal exam, normal oropharynx, mucous membranes moist, TM's normal bilaterally, normal external ear exam Neck exam: Present: normal inspection, full ROM (Full passive range of motion and with resistance.). Absent: tenderness, meningismus, lymphadenopathy Respiratory exam: Present: normal lung sounds bilaterally. Absent: wheezes Cardiovascular Exam: Present: regular rate, normal rhythm, normal heart sounds GI/Abdominal exam: Present: soft, normal bowel sounds, other (Negative McBurney point tenderness, negative Demarco sign, negative anterior, negative Rovsing.). Absent: distended, tenderness, guarding, rebound, hyperactive bowel sounds, hypoactive bowel sounds Extremities exam: Present: normal inspection, full ROM, normal capillary refill, other (+2 ulnar radial pulses bilaterally. +2 dorsalis pedis and posterior tibial bilateral. +5 upper extremity strength bilaterally) Back exam: Present: normal inspection, full ROM. Absent: CVA tenderness (R), CVA tenderness (L) Neurological exam: Present: alert, oriented X3, normal gait, reflexes normal (+2 patellar reflex bilaterally). Absent: motor sensory deficit Psychiatric exam: Present: normal affect, normal mood Skin exam: Present: warm, intact, normal color Course Vital Signs 01/04/19 01/04/19 01/04/19 12:05 13:26 16:00 Temperature 97.6 F 97.6 F 98.2 F Pulse Rate 80 67 72 Respiratory 18 16 16 Rate Blood Pressure 145/80 142/79 138/75 O2 Sat by Pulse 100 100 97 Oximetry Medical Decision Making - Medical Decision Making Patient 73-year-old female presents to emergency room with multiple chief complaints. Patient reports left ear pain that is exacerbated with weightbearing. X-rays are unremarkable. Suspect the pain to be due to osteoarthritic changes. The bilateral upper extremity weakness could be explained by the postsurgical changes with foraminal encroachment noted in the cervical spine. The patient has been having the bilateral proximity weakness for 3 months and at this time I do not suspect any acute pathologies.. Patient asked to follow-up with orthopedics or the surgeon who performed the procedure. KUB is unremarkable. UA is unremarkable. Patient does not have ketones in the urine. Patient has mild elevation of potassium 5.4. Patient does not appear to have an infection. I suspect the patient to have colitis which could be causing the intermittent diarrhea. Patient's vitals are stable. Considering that the patient has been experience in the area for approximately one month, the patient will be discharged with a 6 day course of Levaquin. Patient advised to take Imodium to prevent the diarrhea. Patient given a prescription for a stool culture. Patient advised to follow-up with a GI specialist regarding the prolonged periods of diarrhea. Strict return parameters were thoroughly discussed the patient was understanding and agreeable. Case discussed physician. - Lab Data Result diagrams: 01/04/19 12:55 01/04/19 12:55 Lab Results 01/04/19 01/04/19 01/04/19 Range/Units 12:55 12:55 12:55 WBC 6.6 (3.8-10.6) k/uL RBC 4.22 (3.80-5.40) m/uL Hgb 13.1 (11.4-16.0) gm/dL Hct 39.7 (34.0-46.0) % MCV 94.0 (80.0-100.0) fL MCH 31.0 (25.0-35.0) pg MCHC 32.9 (31.0-37.0) g/dL RDW 13.8 (11.5-15.5) % Plt Count 357 (150-450) k/uL Neutrophils % 60 % Lymphocytes % 28 % Monocytes % 6 % Eosinophils % 3 % Basophils % 1 % Neutrophils # 4.0 (1.3-7.7) k/uL Lymphocytes # 1.8 (1.0-4.8) k/uL Monocytes # 0.4 (0-1.0) k/uL Eosinophils # 0.2 (0-0.7) k/uL Basophils # 0.1 (0-0.2) k/uL Sodium 135 L (137-145) mmol/L Potassium 5.4 H (3.5-5.1) mmol/L Chloride 98 (98-107) mmol/L Carbon Dioxide 27 (22-30) mmol/L Anion Gap 10 mmol/L BUN 14 (7-17) mg/dL Creatinine 0.87 (0.52-1.04) mg/dL Est GFR (CKD-EPI)AfAm 78 (>60 ml/min/1.73 sqM) Est GFR (CKD-EPI)NonAf 67 (>60 ml/min/1.73 sqM) Glucose 88 (74-99) mg/dL Calcium 9.7 (8.4-10.2) mg/dL Total Bilirubin 0.8 (0.2-1.3) mg/dL AST 38 H (14-36) U/L ALT 20 (9-52) U/L Alkaline Phosphatase 47 (38-126) U/L Total Protein 7.3 (6.3-8.2) g/dL Albumin 4.7 (3.5-5.0) g/dL Amylase 66 (30-110) U/L Lipase 100 (23-300) U/L Urine Color Light Yellow Urine Appearance Clear (Clear) Urine pH 5.5 (5.0-8.0) Ur Specific [place] 1.012 (1.001-1.035) Urine Protein Negative (Negative) Urine Glucose (UA) Negative (Negative) Urine Ketones Negative (Negative) Urine Blood Negative (Negative) Urine Nitrite Negative (Negative) Urine Bilirubin Negative (Negative) Urine Urobilinogen <2.0 (<2.0) mg/dL Ur Leukocyte Esterase Small H (Negative) Urine RBC <1 (0-5) /hpf Urine WBC 2 (0-5) /hpf Ur Squamous Epith Cells 1 (0-4) /hpf Hyaline Casts 1 (0-2) /lpf Urine Mucus Rare H (None) /hpf Disposition Clinical Impression: Acute abdomen, Hip pain, left, Diarrhea Disposition: HOME SELF-CARE Condition: Stable Additional Instructions: Please take prescribed medication as directed. Please follow up with orthopedics. Please return to emergency Department if symptom worsen. Please follow up with a GI specialist. Prescriptions: Levofloxacin [Levaquin] 500 mg PO DAILY 3 Days #6 tab Is patient prescribed a controlled substance at d/c from ED?: No Referrals: Sajan Martin DO [Primary Care Provider] - 1-2 days Time of Disposition: 15:54
[2019-01-04 13:27] VITALS: RESP 16
[2019-01-04 13:29] LABS: Basophils # (A) 0.1 k/uL (0-0.2); Basophils % (A) 1 %; Eosinophils # (A) 0.2 k/uL (0-0.7); Eosinophils % (A) 3 %; HCT 39.7 % (34.0-46.0); HGB 13.1 gm/dL (11.4-16.0); Lymphocytes # (A) 1.8 k/uL (1.0-4.8); Lymphocytes % (A) 28 %; MCHC 32.9 g/dL (31.0-37.0); Monocytes # (A) 0.4 k/uL (0-1.0); Monocytes % (A) 6 %; Neutrophils % (A) 60 %; Platelet Count 357 k/uL (150-450); RBC 4.22 m/uL (3.80-5.40); RDW 13.8 % (11.5-15.5); WBC 6.6 k/uL (3.8-10.6)
[2019-01-04 13:31] LABS: Appearance,Urine Clear (Clear); Bilirubin,Urine Negative (Negative); Blood,Urine Negative (Negative); Color,Urine Light Yellow; Glucose,Urine (UA) Negative (Negative); Hyaline Casts,Urine 1 /lpf (0-2); Ketones,Urine Negative (Negative); Leukocyte Esterase,Urine Small (Negative); Mucus,Urine Rare /hpf; Nitrite,Urine Negative (Negative); PH, Urine 5.5 (5.0-8.0); Protein,Urine Negative (Negative); RBC,Urine <1 /hpf (0-5); Specific Gravity,Urine 1.012 (1.001-1.035); Squamous Epithelial Cell,Urine 1 /hpf (0-4); Urobilinogen,Urine <2.0 mg/dL (<2.0); WBC,Urine 2 /hpf (0-5)
[2019-01-04 13:38] LABS: Albumin 4.7 g/dL (3.5-5.0); Calcium 9.7 mg/dL (8.4-10.2); Total Bilirubin 0.8 mg/dL (0.2-1.3); Total Protein 7.3 g/dL (6.3-8.2)
[2019-01-04 13:40] LABS: Potassium 5.4 mmol/L (3.5-5.1)
--- NOTE | 2019-01-04 13:49 | XR ---
EXAMINATION TYPE: XR Hip Complete LT DATE OF EXAM: 01/04/2019 COMPARISON: NONE HISTORY: Pain TECHNIQUE: 2 views submitted FINDINGS: There is no evidence of erosive change or acute fracture. Diffuse osteopenia and mild concentric narrowing of the joint space IMPRESSION: 1. No evidence of acute fracture or dislocation.
--- NOTE | 2019-01-04 13:53 | XR ---
EXAMINATION TYPE: XR cervical spine comp DATE OF EXAM: 01/04/2019 COMPARISON: 06/10/2017 HISTORY: Pain TECHNIQUE: Four views are submitted. FINDINGS: Slight deformity of the odontoid. There are no compression deformities. The prevertebral soft tissu e structures are within normal limits. Postsurgical changes noted which appears in near-anatomic ali gnment. Diffuse osteopenia. Calcification soft tissue the left neck may be vascular. Foraminal encroa chment C4-5 and C5-6 bilaterally. IMPRESSION: 1. Postsurgical change with foraminal encroachment. There is a slight deformity of the odontoid on th e odontoid view. Question cortical offset which could be correlated with CT scan.
--- NOTE | 2019-01-04 13:54 | XR ---
EXAMINATION TYPE: XR KUB DATE OF EXAM: 01/04/2019 COMPARISON: NONE HISTORY: Pain TECHNIQUE: One view abdominal series FINDINGS: The osseous structures are intact. The bowel gas pattern is nonspecific. Lung bases are clear. Surg ical clips in the abdomen noted. Calcifications in pelvis are likely vascular. Arthropathy of the hip s. Hypertrophic change of the vertebral column. IMPRESSION: 1. Nonspecific abdomen.
[2019-01-04 16:10] VITALS: BP 138/75; PULSE 72; TEMP 98.2
== END 2019-01-04 16:00 | disposition home or self-care (01) ==
LOC: EC 12:03
DX: R10.9 Unspecified abdominal pain (principal); R19.7 Diarrhea, unspecified; M25.552 Pain in left hip; H92.02 Otalgia, left ear; M62.81 Muscle weakness (generalized); I10 Essential (primary) hypertension; E07.9 Disorder of thyroid, unspecified; F31.9 Bipolar disorder, unspecified; F41.9 Anxiety disorder, unspecified; Z79.1 Long term (current) use of non-steroidal anti-inflammatories (NSAID); Z79.890 Hormone replacement therapy; Z79.899 Other long term (current) drug therapy; Z90.49 Acquired absence of other specified parts of digestive tract
CPT/HCPCS: 36415; 72050; 73502; 74018; 80053; 81001; 82150; 83690; 85025; 87086; 96360; 99284

== ENCOUNTER → 2019-01-06 | Outpatient (CLI) | payer MEDICARE | END | disposition home or self-care (01) | LOC: LABWHC1 15:00 | PROVIDERS: ATTEND Physician Assistant Medical | DX: R19.7 Diarrhea, unspecified (principal) | CPT/HCPCS: 87045; 87046 ==

== ENCOUNTER → 2019-05-06 | Outpatient (CLI) | payer MEDICARE ==
--- NOTE | 2019-05-06 11:39 | CT ---
EXAMINATION TYPE: CT abdomen pelvis wo con DATE OF EXAM: 05/06/2019 COMPARISON: 02/04/2016 HISTORY: Abdominal pain and diarrhea CT DLP: 691 mGycm Automated exposure control for dose reduction was used. TECHNIQUE: Helical acquisition of images was performed from the lung bases through the pelvis. FINDINGS: LUNG BASES: Year changes involving the lungs most typical scar or atelectasis. LIVER/GB: Postcholecystectomy changes are seen. Liver homogeneous. PANCREAS: There is a focal enlargement of the body the pancreas. This is new from the prior exam natalia ures approximately 2.2 cm. Difficult to determine if this is a related to pancreatic mass or partial volume averaging by noncontrast technique. Recommend follow-up MRI. SPLEEN: No significant abnormality is seen. ADRENALS: No significant abnormality is seen. KIDNEYS: There is a large exophytic 3.7 cm lesion involving the anterior cortex of the mid to lower p ole the left kidney which measures 19 Hounsfield units compatible with a simple cyst. No hydronephros is or nephrolithiasis. ADENOPATHY: None visualized. OSSEOUS STRUCTURES: Disc bulging L4-L5. BOWEL: Postsurgical changes are noted in the right midabdomen with the anastomosis at the level of t he proximal transverse colon. Fecal debris is through the colon to the level of the rectosigmoid junc tion. Scattered mildly prominent fluid-filled small bowel loops are seen. Diverticulosis of the colon noted. Fat attenuation within the right pelvis may represent a small bowel lipoma measuring 1.2 cm. OTHER: Nonspecific calcification seen in the pelvis likely vascular. No bladder calculi. Aorta of nor mal caliber with atherosclerotic changes. IMPRESSION: 1. Nonspecific abdomen with postsurgical changes involving the bowel likely in the region of the ospina sverse colon. Correlate for previous right hemicolectomy. There are fluid-filled mildly prominent sma ll bowel loops which could be related to localized ileus or enteritis. Anastomotic narrowing and part ial obstruction not entirely excluded but felt less likely, correlate clinically. 2. There is focal prominence of the body of the pancreas which is new from the prior exam. Given the limitation exam recommend follow-up MRI to exclude pancreatic mass.
== END | disposition home or self-care (01) ==
LOC: RADCTMAIN 10:44
PROVIDERS: ATTEND Family Medicine
DX: R10.9 Unspecified abdominal pain (principal); Z90.49 Acquired absence of other specified parts of digestive tract
CPT/HCPCS: 74176

== ENCOUNTER → 2019-06-09 | Outpatient (CLI) | payer MEDICARE ==
--- NOTE | 2019-06-09 23:00 | MR ---
EXAMINATION TYPE: MR shoulder RT wo con DATE OF EXAM: 06/09/2019 COMPARISON: 05/28/2019 HISTORY: Rt shoulder pain x 1 year, no trauma TECHNIQUE: Multiplanar, multisequence imaging of the right shoulder is performed without contrast. FINDINGS: Rotator Cuff: There is marked thickening of the distal 2 cm of the infraspinatus tendon extending to the insertion with increased signal. There is increased signal involving the posterior fibers of the insertion of the supraspinatus tendon. Findings are compatible severe tendinopathy and partial intras ubstance tear with no through thickness tear or retraction. Subscapularis tendon intact. Acromioclavicular Joint: Joint space demonstrates mild arthropathy. No diagnostic evidence of impinge ment. Glenohumeral Joint: Joint spaces preserved with no sizable joint effusion. Glenohumeral ligaments int act. Labrum: The labrum appears grossly intact given limitation of non-arthrogram study. Biceps Tendon: The long head of biceps is in normal location within bicipital groove. Bone marrow signal: Cystic changes involving the humeral head likely reactive post degenerative. Nons pecific marrow edema noted. IMPRESSION: 1. Severe tendinosis of the distal 2 cm of the infraspinatus tendon and posterior fibers of the supra spinatus tendon. Partial intrasubstance tear with no through thickness tear or retraction.
== END | disposition home or self-care (01) ==
LOC: RADMRIMAIN 18:08
PROVIDERS: ATTEND Orthopaedic Surgery
DX: M75.81 Other shoulder lesions, right shoulder (principal); S41.011A Laceration without foreign body of right shoulder, initial encounter

== ENCOUNTER → 2019-10-25 | Outpatient (CLI) | payer MEDICARE ==
--- NOTE | 2019-10-25 21:16 | XR ---
Cervical spine HISTORY: Neck pain 5 views of the cervical spine correlated to prior cervical spine dated 01/04/2019 Patient shows stable anterior cervical fusion and discectomy changes at C3-C6. Bone mineralization is reduced. Alignment is maintained. Loss of disc height with spondylosis present at C6-7. There is mul tilevel facet arthropathy. Patient is edentulous. Mild stable foraminal encroachment on oblique views . IMPRESSION: Stable postoperative findings. Degenerative disc disease.
== END | disposition home or self-care (01) ==
LOC: RADXRMAIN 16:21
PROVIDERS: ATTEND Family Medicine
DX: M50.30 Other cervical disc degeneration, unspecified cervical region (principal); Z98.1 Arthrodesis status
CPT/HCPCS: 72050

== ENCOUNTER → 2019-10-29 | Outpatient (CLI) | payer MEDICARE ==
--- NOTE | 2019-10-29 12:43 | XR ---
EXAMINATION TYPE: XR chest 2V DATE OF EXAM: 10/29/2019 COMPARISON: Prior chest x-ray 06/10/2017 HISTORY: Cough, hemoptysis TECHNIQUE: Frontal and lateral views of the chest are obtained. FINDINGS: There is no focal air space opacity, pleural effusion, or pneumothorax seen. The cardiac silhouette size is within normal limits. The osseous structures are intact, there is a gentle spina l curvature. The aorta is dense. Postop changes are noted to the lower cervical spine.. IMPRESSION: No acute cardiopulmonary process.
== END | disposition home or self-care (01) ==
LOC: RADXRMAIN 10:40
PROVIDERS: ATTEND Family Medicine
DX: R04.2 Hemoptysis (principal)
CPT/HCPCS: 71046

== ENCOUNTER 2019-11-06 12:23 | Emergency (ER) | payer MEDICARE ==
[2019-11-06 12:35] VITALS: TEMP 98.2
[2019-11-06] MEDS ORDERED: METOCLOPRAMIDE 5 MG/ML 2 ML VIAL IVP STA (12:43)
[2019-11-06] MEDS ORDERED: MECLIZINE 12.5 MG TAB PO STA (12:43)
--- NOTE | 2019-11-06 12:46 | ED ---
General Adult HPI - General Chief complaint: Dizziness Stated complaint: Dizziness Time Seen by Provider: 11/06/19 12:37 Source: patient, RN notes reviewed Mode of arrival: ambulatory Limitations: no limitations - History of Present Illness Initial comments: Patient is a pleasant 74-year-old female presenting to the emergency Department with complaints of dizziness. Patient states onset of symptoms was several months ago, possibly fibrocystic months ago. Patient has feeling that she is off balance. Patient falls frequently. Patient states symptoms are constant however sometimes are worse. Patient is sometimes able to do her shopping however states she does fall frequently. No significant injury. Patient does complain of headache however patient has chronic headaches and this is similar to that.. Headache was not sudden onset and is not different from chronic headaches. No isolated area of weakness. No confusion or speech problems. - Related Data Home Medications Medication Instructions Recorded Confirmed Levothyroxine Sodium [Synthroid] 88 mcg PO DAILY 01/12/15 01/04/19 lamoTRIgine [LaMICtal] 400 mg PO HS 11/17/15 01/04/19 ALPRAZolam 1 mg PO QID PRN 11/28/15 01/04/19 Cholecalciferol [Vitamin D3] 1,000 unit PO DAILY 03/06/17 01/04/19 [place]-3 Fatty Acids/Fish Oil [Fish 1 cap PO DAILY 03/06/17 01/04/19 Oil 1,000 mg Softgel] Calcium Carbonate [Calcium] 1,200 mg PO DAILY 03/21/17 01/04/19 Cyclobenzaprine [Flexeril] 10 mg PO BID 03/21/17 01/04/19 Meloxicam [Mobic] 15 mg PO DAILY 03/21/17 01/04/19 Venlafaxine HCl [Effexor XR] 225 mg PO DAILY 03/21/17 01/04/19 amLODIPine [Norvasc] 2.5 mg PO HS 03/21/17 01/04/19 Previous Rx's Medication Instructions Recorded Eszopiclone [Lunesta] 3 mg PO HS #30 tab 11/24/15 Gabapentin [Neurontin] 100 mg PO TID #90 cap 09/11/17 Levofloxacin [Levaquin] 500 mg PO DAILY 3 Days #6 tab 01/04/19 Meclizine [Antivert] 12.5 mg PO Q6H PRN #12 tablet 11/06/19 Allergies Allergy/AdvReac Type Severity Reaction Status Date / Time No Known Allergies Allergy Verified 11/06/19 12:35 Review of Systems ROS Statement: Those systems with pertinent positive or pertinent negative responses have been documented in the HPI. ROS Other: All systems not noted in ROS Statement are negative. Constitutional: Denies: fever Eyes: Denies: eye pain ENT: Denies: ear pain Respiratory: Denies: cough Cardiovascular: Denies: chest pain Endocrine: Denies: fatigue Gastrointestinal: Denies: abdominal pain Genitourinary: Denies: dysuria Musculoskeletal: Denies: back pain Skin: Denies: rash Neurological: Reports: headache. Denies: weakness, numbness, paresthesias, confusion Past Medical History Past Medical History: Hypertension, Osteoarthritis (OA), Thyroid Disorder Additional Past Medical History / Comment(s): left side and lower back pain, History of Any Multi-Drug Resistant Organisms: None Reported Past Surgical History: Bowel Resection, Cholecystectomy, Tonsillectomy Additional Past Surgical History / Comment(s): "face lift", cathi cataracts, neck surgery Past Anesthesia/Blood Transfusion Reactions: No Reported Reaction Past Psychological History: Anxiety, Bipolar, Depression Smoking Status: Never smoker Past Alcohol Use History: None Reported Past Drug Use History: None Reported - Past Family History Father Family Medical History: Coronary Artery Disease (CAD) Additional Family Medical History / Comment(s): at 62 Mother Family Medical History: Cancer Additional Family Medical History / Comment(s): brain cancer Brother(s) Family Medical History: Cancer General Exam Limitations: no limitations General appearance: alert, in no apparent distress Head exam: Present: atraumatic, normocephalic Eye exam: Present: normal appearance, PERRL, EOMI. Absent: nystagmus ENT exam: Present: normal oropharynx Neck exam: Present: normal inspection Respiratory exam: Present: normal lung sounds bilaterally Cardiovascular Exam: Present: regular rate, normal rhythm GI/Abdominal exam: Present: soft. Absent: tenderness Neurological exam: Present: alert, oriented X3, CN II-XII intact. Absent: motor sensory deficit Expanded Neurological exam: Present: protecting the airway Speech: Present: fluid speech Cranial nerves: EOM's Intact: Normal Cerebellar function: Finger to Nose: Normal (Slow to perform the task, but was able to) Motor strength exam: RUE: 5, LUE: 5, RLE: 5, LLE: 5 Eye Response: (4) open spontaneously Motor Response: (6) obeys commands Verbal Response: (5) oriented Psychiatric exam: Present: normal affect, normal mood Skin exam: Present: normal color Course Vital Signs 11/06/19 12:32 Temperature 98.2 F Pulse Rate 65 Respiratory 18 Rate Blood Pressure 96/56 O2 Sat by Pulse 97 Oximetry EKG Findings - EKG Comments: EKG Findings:: Sinus bradycardia 57. MT 160. QRS 90. QT 422. QTC 410. Normal axis. Normal QRS. No acute ST change. Medical Decision Making - Medical Decision Making Patient reevaluated and resting comfortably in bed. Patient states symptoms morrell ve improved. Patient is comfortable with discharge home. Patient adds that symptoms have been again occurring for possibly up to 5-6 months. Patient is agreeable to follow-up and advised that she may need to see neurology through her primary care physician or ENT or both. - Lab Data Result diagrams: 11/06/19 13:00 11/06/19 12:45 Lab Results 11/06/19 11/06/19 11/06/19 Range/Units 12:45 12:45 13:00 WBC 6.0 (3.8-10.6) k/uL RBC 3.05 L (3.80-5.40) m/uL Hgb 9.8 L (11.4-16.0) gm/dL Hct 29.0 L (34.0-46.0) % MCV 95.1 (80.0-100.0) fL MCH 32.1 (25.0-35.0) pg MCHC 33.7 (31.0-37.0) g/dL RDW 13.0 (11.5-15.5) % Plt Count 268 (150-450) k/uL Neutrophils % (Manual) 73 % Lymphocytes % (Manual) 11 % Monocytes % (Manual) 16 % Neutrophils # (Manual) 4.38 (1.3-7.7) k/uL Lymphocytes # (Manual) 0.66 L (1.0-4.8) k/uL Monocytes # (Manual) 0.96 (0-1.0) k/uL Nucleated RBCs 0 (0-0) /100 WBC Manual Slide Review Performed RBC Morphology Normal PT 9.9 (9.0-12.0) sec INR 1.0 (<1.2) APTT 30.3 H (22.0-30.0) sec Sodium 129 L (137-145) mmol/L Potassium 4.2 (3.5-5.1) mmol/L Chloride 95 L (98-107) mmol/L Carbon Dioxide 23 (22-30) mmol/L Anion Gap 11 mmol/L BUN 18 H (7-17) mg/dL Creatinine 1.11 H (0.52-1.04) mg/dL Est GFR (CKD-EPI)AfAm 58 (>60 ml/min/1.73 sqM) Est GFR (CKD-EPI)NonAf 50 (>60 ml/min/1.73 sqM) Glucose 104 H (74-99) mg/dL Calcium 8.8 (8.4-10.2) mg/dL Total Bilirubin 0.3 (0.2-1.3) mg/dL AST 24 (14-36) U/L ALT 17 (4-34) U/L Alkaline Phosphatase 127 H (38-126) U/L Total Protein 5.5 L (6.3-8.2) g/dL Albumin 3.1 L (3.5-5.0) g/dL - Radiology Data Radiology results: report reviewed (Computed tomography scan of the brain shows atrophy. No acute intercranial abnormality. CT angiogram shows negative CT angios of the brain and neck.), image reviewed (Chest x-ray shows minimal pleural fluid. No heart failure.) Disposition Clinical Impression: Dizziness Disposition: HOME SELF-CARE Condition: Stable Instructions (If sedation given, give patient instructions): Dizziness (ED) Additional Instructions: Please follow-up with primary care physician in the next day or 2 for recheck. [id number] Antivert as needed, prescription was provided. Also follow-up with ENT and consider neurology evaluation as discussed with primary care physician. Return for increased dizziness, increased falling, unable to take care of self, worsening symptoms or other concerns. Prescription was sent to [facility] in [facility] Prescriptions: Meclizine [Antivert] 12.5 mg PO Q6H PRN #12 tablet PRN Reason: Vertigo Is patient prescribed a controlled substance at d/c from ED?: No Referrals: Sajan Martin DO [Primary Care Provider] - 1-2 days Suman Peraza MD [STAFF PHYSICIAN] - 1-2 days Time of Disposition: 14:46
[2019-11-06 13:24] LABS: Albumin 3.1 g/dL (3.5-5.0); Calcium 8.8 mg/dL (8.4-10.2); Potassium 4.2 mmol/L (3.5-5.1); Total Bilirubin 0.3 mg/dL (0.2-1.3); Total Protein 5.5 g/dL (6.3-8.2)
[2019-11-06 13:37] LABS: Partial Thromboplastin Time 30.3 sec (22.0-30.0); Prothrombin Time 9.9 sec (9.0-12.0)
[2019-11-06 13:40] LABS: HGB 9.8 gm/dL (11.4-16.0); MCH 32.1 pg (25.0-35.0); MCHC 33.7 g/dL (31.0-37.0); MCV 95.1 fL (80.0-100.0); Mean Platelet Volume 7.5; Platelet Count 268 k/uL (150-450); RBC 3.05 m/uL (3.80-5.40)
[2019-11-06 14:02] LABS: Lymphocytes # (M) 0.66 k/uL (1.0-4.8); Monocytes # (M) 0.96 k/uL (0-1.0); Neutrophils # (M) 4.38 k/uL (1.3-7.7); Neutrophils % (M) 73 %; Nucleated Red Blood Cells 0 /100 WBC (0-0); Total Cells Counted 100
--- NOTE | 2019-11-06 14:15 | XR ---
EXAMINATION TYPE: XR chest 2V DATE OF EXAM: 11/06/2019 COMPARISON: 10/29/2019 HISTORY: Hemoptysis. Altered mental status. Vomiting. TECHNIQUE: 2 views FINDINGS: There is slight blunting of the costophrenic angles. There is no heart failure. There are c hest leads. Heart size is fairly normal. Bones appear intact. IMPRESSION: Minimal pleural fluid is a change compared to old exam. No heart failure seen.
--- NOTE | 2019-11-06 14:27 | CT ---
EXAMINATION TYPE: CT brain wo con DATE OF EXAM: 11/06/2019 COMPARISON: 01/26/2018 HISTORY: unsteady gait, weakness CT DLP: 1089 mGycm Automated exposure control for dose reduction was used. There is some mild cerebral cortical atrophy. There is no mass effect nor midline shift. There is no sign of intracranial hemorrhage. The calvarium appears intact. Skull base is intact. IMPRESSION: Cerebral atrophy. No acute intracranial abnormality. No change.
--- NOTE | 2019-11-06 14:30 | CT ---
EXAMINATION TYPE: CT angio head neck DATE OF EXAM: 11/06/2019 COMPARISON: 01/26/2018 HISTORY: weakness, unsteady gait CT DLP: 372.9 mGycm Automated exposure control for dose reduction was used. CONTRAST: Performed with IV Contrast, patient injected with 65 mL of Isovue 370. Multiple axial sections were obtained from the aortic arch to the vertex of the brain with IV contras t and 3-D post processed images. FINDINGS: There is normal branching pattern of the great vessels on the aortic arch. There is bilateral arteria l flow in the subclavian arteries. There is arterial flow in the common internal and external carotid arteries bilaterally. There is wide patency of the carotid artery bifurcations. There is arterial fl ow in both vertebral arteries. There is arterial flow in the vertebrobasilar artery system. There is no evidence of carotid or vertebral artery aneurysm or dissection. There is arterial flow in the anterior middle and posterior cerebral arteries. There is normal contra st opacification of the venous sinuses. I see no evidence of intracranial arterial stenosis. There is no sign of aneurysm or neovascularity. There is no mass effect. IMPRESSION: Negative CT angiogram of the neck. Negative CT angiogram of the brain. No adverse change.
[2019-11-06] MEDS ORDERED: SODIUM CHLORIDE 0.9% 500 ML 500 ML IV STA (14:32)
[2019-11-06 14:54] VITALS: PULSE 56
[2019-11-06 15:25] VITALS: BP 118/55; RESP 14
== END 2019-11-06 15:33 | disposition home or self-care (01) ==
LOC: EC 12:23
DX: R42 Dizziness and giddiness (principal); E07.9 Disorder of thyroid, unspecified; I10 Essential (primary) hypertension; M19.90 Unspecified osteoarthritis, unspecified site; F31.9 Bipolar disorder, unspecified; F41.9 Anxiety disorder, unspecified; Z79.899 Other long term (current) drug therapy; Z79.890 Hormone replacement therapy; Z79.1 Long term (current) use of non-steroidal anti-inflammatories (NSAID)
CPT/HCPCS: 99284; 96374; 36415; 93005; 80053; 85025; 85610; 85730; 71046; 70496; 70450; 70498; J2765; Q9967

== ENCOUNTER 2019-12-06 08:06 | Emergency (ER) | payer MEDICARE ==
[2019-12-06 08:14] VITALS: RESP 18
[2019-12-06] MEDS ORDERED: SODIUM CHLORIDE 0.9% 1,000 ML IV ONE (08:45)
[2019-12-06 08:57] LABS: Basophils # (A) 0.1 k/uL (0-0.2); Basophils % (A) 1 %; Eosinophils # (A) 0.2 k/uL (0-0.7); Eosinophils % (A) 4 %; HCT 40.3 % (34.0-46.0); HGB 12.9 gm/dL (11.4-16.0); Lymphocytes % (A) 34 %; MCH 30.6 pg (25.0-35.0); MCV 95.4 fL (80.0-100.0); Mean Platelet Volume 6.8; Monocytes # (A) 0.5 k/uL (0-1.0); Monocytes % (A) 8 %; Neutrophils # (A) 2.9 k/uL (1.3-7.7); Neutrophils % (A) 50 %; Platelet Count 309 k/uL (150-450); RBC 4.22 m/uL (3.80-5.40); RDW 14.1 % (11.5-15.5); WBC 5.8 k/uL (3.8-10.6)
[2019-12-06 09:06] LABS: Albumin 4.6 g/dL (3.5-5.0); Calcium 9.9 mg/dL (8.4-10.2); Potassium 4.7 mmol/L (3.5-5.1); Total Bilirubin 0.3 mg/dL (0.2-1.3); Total Protein 6.9 g/dL (6.3-8.2)
[2019-12-06 09:08] LABS: INR 0.9 (<1.2); Partial Thromboplastin Time 24.8 sec (22.0-30.0); Prothrombin Time 9.7 sec (9.0-12.0)
[2019-12-06 09:21] LABS: Appearance,Urine Clear (Clear); Bilirubin,Urine Negative (Negative); Blood,Urine Negative (Negative); Color,Urine Yellow; Glucose,Urine (UA) Negative (Negative); Ketones,Urine Negative (Negative); Leukocyte Esterase,Urine Moderate (Negative); Mucus,Urine Rare /hpf; Nitrite,Urine Negative (Negative); Protein,Urine Negative (Negative); RBC,Urine 2 /hpf (0-5); Specific Gravity,Urine 1.012 (1.001-1.035); Squamous Epithelial Cell,Urine <1 /hpf (0-4); Urobilinogen,Urine <2.0 mg/dL (<2.0); WBC,Urine 8 /hpf (0-5)
--- NOTE | 2019-12-06 09:39 | XR ---
EXAMINATION TYPE: XR chest 2V DATE OF EXAM: 12/06/2019 COMPARISON: 11/06/2019 TECHNIQUE: PA and lateral views submitted. HISTORY: Pain FINDINGS: The lungs are clear and there is no pneumothorax, pleural effusion, or focal pneumonia. Hypertrophi c and degenerative changes spine. Hyperinflation suggests COPD. Postsurgical change overlying the cer vical spine. No overt failure. Heart size normal. Diffuse osteopenia. IMPRESSION: 1. COPD.
[2019-12-06] MEDS ORDERED: cefTRIAXone IN SWFI 1,000 MG/10 ML SYRINGE IVP STA (09:56)
--- NOTE | 2019-12-06 09:58 | ED ---
General Adult HPI - General Chief complaint: Recheck/Abnormal Lab/Rx Stated complaint: Chest heaviness, Bladder infection Time Seen by Provider: 12/06/19 08:10 Source: patient Mode of arrival: wheelchair Limitations: no limitations - History of Present Illness Initial comments: Patient is a 74-year-old female with past history of hypertension, thyroid d isorder who presents emergency Department with reported bilateral shoulder pain and dysuria. Patient states that she saw her primary care physician office on Friday and was diagnosed with urinary tract infection. She was started on Macrobid. States she's been taking the medications as directed however has persistent dysuria. She did take her medications as directed on Friday through this morning. Eyes hematuria. Does have increased frequency of voiding. Patient denies any abdominal pain. Does report that when she woke up this morning she was having pain in her bilateral shoulders near her trapezius muscle. Patient has history of chronic arthritis. She states she has a muscle relaxer at home that she can take for pain however was concerned about taking it before she drove in to be evaluated. ER report states that the patient is also having chest pain but the patient reports that this is movement is chronic for her. States is located over the left side of her chest. She has been evaluated by a physician out of [facility]. Had stress testing and an ultrasound. The pain isn't present for the past 5 months and she states this is nothing new or different areas states this is not the reason why she came into the emergency room. She denies any fevers or chills. No nausea or vomiting. No ripping or tearing sensation to her back. No other alleviating, precipitating or modifying factors - Related Data Home Medications Medication Instructions Recorded Confirmed Levothyroxine Sodium [Synthroid] 88 mcg PO DAILY 01/12/15 12/06/19 ALPRAZolam 1 mg PO QID PRN 11/28/15 12/06/19 Cholecalciferol [Vitamin D3] 1,000 unit PO DAILY 03/06/17 12/06/19 Calcium Carbonate [Calcium] 1,200 mg PO DAILY 03/21/17 12/06/19 Meloxicam [Mobic] 15 mg PO DAILY PRN 03/21/17 12/06/19 Venlafaxine HCl [Effexor XR] 225 mg PO DAILY 03/21/17 12/06/19 Nitrofurantoin Monohyd/M-Cryst 100 mg PO BID 12/06/19 12/06/19 [Macrobid] Thiamine [Vitamin B-1] 100 mg PO DAILY 12/06/19 12/06/19 amLODIPine [Norvasc] 5 mg PO DAILY 12/06/19 12/06/19 lamoTRIgine 100 mg PO TID 12/06/19 12/06/19 traZODone HCL 150 mg PO HS 12/06/19 12/06/19 Previous Rx's Medication Instructions Recorded Cephalexin [Keflex] 500 mg PO Q12HR #14 cap 12/06/19 Allergies Allergy/AdvReac Type Severity Reaction Status Date / Time No Known Allergies Allergy Verified 12/06/19 09:34 Review of Systems ROS Statement: Those systems with pertinent positive or pertinent negative responses have been documented in the HPI. ROS Other: All systems not noted in ROS Statement are negative. Past Medical History Past Medical History: Hypertension, Osteoarthritis (OA), Thyroid Disorder Additional Past Medical History / Comment(s): left side and lower back pain, History of Any Multi-Drug Resistant Organisms: None Reported Past Surgical History: Bowel Resection, Cholecystectomy, Tonsillectomy Additional Past Surgical History / Comment(s): "face lift", cathi cataracts, neck surgery Past Anesthesia/Blood Transfusion Reactions: No Reported Reaction Past Psychological History: Anxiety, Bipolar, Depression Smoking Status: Never smoker Past Alcohol Use History: None Reported Past Drug Use History: None Reported - Past Family History Father Family Medical History: Coronary Artery Disease (CAD) Additional Family Medical History / Comment(s): at 62 Mother Family Medical History: Cancer Additional Family Medical History / Comment(s): brain cancer Brother(s) Family Medical History: Cancer General Exam Limitations: no limitations General appearance: alert, in no apparent distress Head exam: Present: atraumatic, normocephalic, normal inspection Eye exam: Present: normal appearance, PERRL, EOMI. Absent: scleral icterus, conjunctival injection, periorbital swelling ENT exam: Present: normal exam, mucous membranes moist Neck exam: Present: normal inspection, tenderness (bilateral trapezius muscles with palpable muscle spasm). Absent: meningismus, lymphadenopathy Respiratory exam: Present: normal lung sounds bilaterally. Absent: respiratory distress, wheezes, rales, rhonchi, stridor Cardiovascular Exam: Present: regular rate, normal rhythm, normal heart sounds. Absent: systolic murmur, diastolic murmur, rubs, gallop, clicks GI/Abdominal exam: Present: soft, normal bowel sounds. Absent: distended, tenderness, guarding, rebound, rigid Extremities exam: Present: normal inspection, full ROM, normal capillary refill. Absent: tenderness, pedal edema, joint swelling, calf tenderness Back exam: Present: normal inspection Neurological exam: Present: alert, oriented X3, CN II-XII intact Psychiatric exam: Present: normal affect, normal mood Skin exam: Present: warm, dry, intact, normal color. Absent: rash Course Vital Signs 12/06/19 12/06/19 08:10 10:13 Temperature 98.5 F 97.3 F L Pulse Rate 99 70 Respiratory 18 18 Rate Blood Pressure 106/67 120/67 O2 Sat by Pulse 98 98 Oximetry EKG Findings - EKG Comments: EKG Findings:: EKG demonstrates normal sinus rhythm with ventricular rate of 80. WI interval 148. QRS 82. QTC of 431. No acute ST segment patient's depressions concerning for ischemic changes Medical Decision Making - Medical Decision Making Upon arrival patient is placed into room 4. A thorough history and physical exam was performed. 12-lead EKG was obtained. It increases were conducted. Patient does provide another urine sample. Laboratory studies are unremarkable. Urinalysis does demonstrate leukocyte esterase, 8 white blood cells and rare mucous. The patient is having persistent symptoms on Macrobid. I did give her dose of Rocephin the patient be switched to Keflex area and sensitivity is jadyn cked and this is sensitive. Chest x-ray was performed which demonstrates COPD picture. Discussed diagnosis, differential and treatment options. Patient feels comfortable going home at this time. She will start antibiotics tomorrow. Follow up with primary care physician in regards to her symptoms. Return to the emergency room for any new or worsening symptoms. I did recommend an x-ray of the patient's neck because of her reported trapezius pain however the patient refused. She states she does have a muscle relaxer at home and take 1 once she gets home. Patient was discharged home in stable condition - Lab Data Result diagrams: 12/06/19 08:43 12/06/19 08:43 Lab Results 12/06/19 12/06/19 12/06/19 Range/Units 08:43 08:43 08:43 WBC 5.8 (3.8-10.6) k/uL RBC 4.22 (3.80-5.40) m/uL Hgb 12.9 (11.4-16.0) gm/dL Hct 40.3 (34.0-46.0) % MCV 95.4 (80.0-100.0) fL MCH 30.6 (25.0-35.0) pg MCHC 32.0 (31.0-37.0) g/dL RDW 14.1 (11.5-15.5) % Plt Count 309 (150-450) k/uL Neutrophils % 50 % Lymphocytes % 34 % Monocytes % 8 % Eosinophils % 4 % Basophils % 1 % Neutrophils # 2.9 (1.3-7.7) k/uL Lymphocytes # 2.0 (1.0-4.8) k/uL Monocytes # 0.5 (0-1.0) k/uL Eosinophils # 0.2 (0-0.7) k/uL Basophils # 0.1 (0-0.2) k/uL PT 9.7 (9.0-12.0) sec INR 0.9 (<1.2) APTT 24.8 (22.0-30.0) sec Sodium 136 L (137-145) mmol/L Potassium 4.7 (3.5-5.1) mmol/L Chloride 99 (98-107) mmol/L Carbon Dioxide 27 (22-30) mmol/L Anion Gap 10 mmol/L BUN 9 (7-17) mg/dL Creatinine 0.92 (0.52-1.04) mg/dL Est GFR (CKD-EPI)AfAm 72 (>60 ml/min/1.73 sqM) Est GFR (CKD-EPI)NonAf 63 (>60 ml/min/1.73 sqM) Glucose 94 (74-99) mg/dL Plasma Lactic Acid Piyush (0.7-2.0) mmol/L Calcium 9.9 (8.4-10.2) mg/dL Total Bilirubin 0.3 (0.2-1.3) mg/dL AST 24 (14-36) U/L ALT 14 (4-34) U/L Alkaline Phosphatase 103 (38-126) U/L Troponin I (0.000-0.034) ng/mL Total Protein 6.9 (6.3-8.2) g/dL Albumin 4.6 (3.5-5.0) g/dL Urine Color Urine Appearance (Clear) Urine pH (5.0-8.0) Ur Specific [place] (1.001-1.035) Urine Protein (Negative) Urine Glucose (UA) (Negative) Urine Ketones (Negative) Urine Blood (Negative) Urine Nitrite (Negative) Urine Bilirubin (Negative) Urine Urobilinogen (<2.0) mg/dL Ur Leukocyte Esterase (Negative) Urine RBC (0-5) /hpf Urine WBC (0-5) /hpf Ur Squamous Epith Cells (0-4) /hpf Urine Mucus (None) /hpf 12/06/19 12/06/19 12/06/19 Range/Units 08:43 08:43 09:05 WBC (3.8-10.6) k/uL RBC (3.80-5.40) m/uL Hgb (11.4-16.0) gm/dL Hct (34.0-46.0) % MCV (80.0-100.0) fL MCH (25.0-35.0) pg MCHC (31.0-37.0) g/dL RDW (11.5-15.5) % Plt Count (150-450) k/uL Neutrophils % % Lymphocytes % % Monocytes % % Eosinophils % % Basophils % % Neutrophils # (1.3-7.7) k/uL Lymphocytes # (1.0-4.8) k/uL Monocytes # (0-1.0) k/uL Eosinophils # (0-0.7) k/uL Basophils # (0-0.2) k/uL PT (9.0-12.0) sec INR (<1.2) APTT (22.0-30.0) sec Sodium (137-145) mmol/L Potassium (3.5-5.1) mmol/L Chloride (98-107) mmol/L Carbon Dioxide (22-30) mmol/L Anion Gap mmol/L BUN (7-17) mg/dL Creatinine (0.52-1.04) mg/dL Est GFR (CKD-EPI)AfAm (>60 ml/min/1.73 sqM) Est GFR (CKD-EPI)NonAf (>60 ml/min/1.73 sqM) Glucose (74-99) mg/dL Plasma Lactic Acid Piyush 1.8 (0.7-2.0) mmol/L Calcium (8.4-10.2) mg/dL Total Bilirubin (0.2-1.3) mg/dL AST (14-36) U/L ALT (4-34) U/L Alkaline Phosphatase (38-126) U/L Troponin I <0.012 (0.000-0.034) ng/mL Total Protein (6.3-8.2) g/dL Albumin (3.5-5.0) g/dL Urine Color Yellow Urine Appearance Clear (Clear) Urine pH 6.0 (5.0-8.0) Ur Specific [place] 1.012 (1.001-1.035) Urine Protein Negative (Negative) Urine Glucose (UA) Negative (Negative) Urine Ketones Negative (Negative) Urine Blood Negative (Negative) Urine Nitrite Negative (Negative) Urine Bilirubin Negative (Negative) Urine Urobilinogen <2.0 (<2.0) mg/dL Ur Leukocyte Esterase Moderate H (Negative) Urine RBC 2 (0-5) /hpf Urine WBC 8 H (0-5) /hpf Ur Squamous Epith Cells <1 (0-4) /hpf Urine Mucus Rare H (None) /hpf Disposition Clinical Impression: UTI (urinary tract infection) Disposition: HOME SELF-CARE Condition: Stable Additional Instructions: Please take your muscle relaxer as directed. Do not work or drive while taking it. Change to the new antibiotic which you will start tomorrow. Follow up with your primary care doctor in 2-4 days. Return to the emergency room for any new or worsening symptoms Prescriptions: Cephalexin [Keflex] 500 mg PO Q12HR #14 cap Is patient prescribed a controlled substance at d/c from ED?: No Referrals: Sajan Martin DO [Primary Care Provider] - 1-2 days Time of Disposition: 09:58
[2019-12-06 10:14] VITALS: BP 120/67; PULSE 70; TEMP 97.3
== END 2019-12-06 10:28 | disposition home or self-care (01) ==
LOC: EC 08:06
DX: N39.0 Urinary tract infection, site not specified (principal); R07.9 Chest pain, unspecified; M25.511 Pain in right shoulder; M25.512 Pain in left shoulder; I10 Essential (primary) hypertension; M19.90 Unspecified osteoarthritis, unspecified site; E07.9 Disorder of thyroid, unspecified; F41.9 Anxiety disorder, unspecified; F32.9 Major depressive disorder, single episode, unspecified; Z79.899 Other long term (current) drug therapy; Z79.890 Hormone replacement therapy; Z98.42 Cataract extraction status, left eye; Z98.41 Cataract extraction status, right eye
CPT/HCPCS: 99284; 96374; 96361; 36415; 93005; 80053; 83605; 84484; 85025; 85610; 85730; 81001; 71046; J0696

== ENCOUNTER → 2020-01-24 | Outpatient (CLI) | payer MEDICARE ==
--- NOTE | 2020-01-24 14:29 | CT ---
EXAMINATION TYPE: CT soft tissue neck w con DATE OF EXAM: 01/24/2020 COMPARISON: None HISTORY: Dysphagia, chronic cough CT DLP: 291.9 mGycm CONTRAST: CT scan of the neck is performed with IV Contrast, patient injected with 80 mL of Isovue 300. Contrast enhanced CT of the neck was performed from the skull base through the lung apices. AIRWAY: The supraglottic, glottic, and subglottic portions of the airway appear patent and free of mass. SALIVARY GLANDS: The submandibular and parotid glands are free of mass or inflammatory process. THYROID GLAND: No nodules or masses seen. LYMPH NODES: No adenopathy seen greater than 1cm. LUNG APICES: No nodule or mass is seen. OTHER: Vascular structures are patent. Anterior fixation plate and screws C3-C5. Fixation plate that could result in dysphagia. Correlate clinically. No abscess seen. IMPRESSION: 1.Anterior fixation plate and screws C3-C5. Fixation plate that could result in dysphagia. Correlate clinically.
== END | disposition home or self-care (01) ==
LOC: RADCTMAIN 12:41
PROVIDERS: ATTEND Nurse Practitioner Family
DX: R13.10 Dysphagia, unspecified (principal); R05 Cough; Z96.89 Presence of other specified functional implants
CPT/HCPCS: 70491; 82565; 84520

== ENCOUNTER → 2020-02-15 | Outpatient (CLI) | payer MEDICARE ==
--- NOTE | 2020-02-16 11:44 | MM ---
Reason for exam: screening (asymptomatic). Last mammogram was performed 2 years and 9 months ago. History: Patient is postmenopausal. Family history of breast cancer in aunt. Benign excisional biopsy of the left breast, 2001. Physical Findings: A clinical breast exam by your physician is recommended on an annual basis and results should be correlated with mammographic findings. MG 3D Screening Mammo W/Cad Bilateral CC and MLO view(s) were taken. Prior study comparison: May 21, 2017, left breast MG 3d work up w/cad LT. May 15, 2017, bilateral MG 3d screening mammo w/cad. There are scattered fibroglandular densities. No significant changes when compared with prior studies. ASSESSMENT: Benign, BI-RAD 2 RECOMMENDATION: Routine screening mammogram of both breasts in 1 year.
== END | disposition home or self-care (01) ==
LOC: RADMAMWWP 14:48
PROVIDERS: ATTEND Family Medicine
DX: Z12.31 Encounter for screening mammogram for malignant neoplasm of breast (principal)
CPT/HCPCS: 77063; 77067

== ENCOUNTER → 2020-05-01 | Outpatient (CLI) | payer MEDICARE ==
[2020-05-01 09:41] VITALS: BP 109/64; RESP 18; TEMP 98.7
[2020-05-01 09:45] VITALS: PULSE 75
--- NOTE | 2020-05-01 10:20 | P.PAINCN ---
History of Present Illness - Reason for Consult Consult date: 05/01/20 - History of Present Illness This is an initial consultation visit for this 74 years old female, with two- month history of severe neck pain with radiation to the upper extremity associated with numbness and tingling sensation in both hands, she denies any initiating event, the patient had cervical fusion surgery done 3 years ago and she did relatively well until 2 months ago, her neck pain increases with any neck movement and also symptoms associated with numbness and tingling, she denies any fever or night sweats ,she denies any change in the bowel movement or urination. Past Medical History Past Medical History: Hypertension, Osteoarthritis (OA), Thyroid Disorder Additional Past Medical History / Comment(s): neck and shoulder pain History of Any Multi-Drug Resistant Organisms: None Reported Past Surgical History: Bowel Resection, Cholecystectomy, Tonsillectomy Additional Past Surgical History / Comment(s): "face lift", cathi cataracts, cervical fusion Past Anesthesia/Blood Transfusion Reactions: No Reported Reaction Smoking Status: Never smoker - Past Family History Father Family Medical History: Coronary Artery Disease (CAD) Additional Family Medical History / Comment(s): at 62 Mother Family Medical History: Cancer Additional Family Medical History / Comment(s): brain cancer Brother(s) Family Medical History: Cancer Medications and Allergies Home Medications Medication Instructions Recorded Confirmed Type Levothyroxine Sodium [Synthroid] 88 mcg PO DAILY 01/12/15 05/01/20 History ALPRAZolam 1 mg PO TID 11/28/15 05/01/20 History Cholecalciferol [Vitamin D3] 1,000 unit PO DAILY 03/06/17 05/01/20 History Calcium Carbonate [Calcium] 1,200 mg PO DAILY 03/21/17 05/01/20 History Meloxicam [Mobic] 15 mg PO DAILY PRN 03/21/17 05/01/20 History Venlafaxine HCl [Effexor XR] 225 mg PO DAILY 03/21/17 05/01/20 History Thiamine [Vitamin B-1] 100 mg PO DAILY 12/06/19 05/01/20 History amLODIPine [Norvasc] 5 mg PO DAILY 12/06/19 05/01/20 History lamoTRIgine 100 mg PO TID 12/06/19 05/01/20 History traZODone HCL 150 mg PO HS 12/06/19 05/01/20 History Allergies Allergy/AdvReac Type Severity Reaction Status Date / Time No Known Allergies Allergy Verified 04/28/20 13:40 Physical Exam Vitals: Vital Signs Temp Pulse Resp BP Pulse Ox 05/01/20 09:30 98.7 F 75 18 109/64 96 Physical Examinations : -Constitutiona : Cooperative , not in acute distress . -HEENT : nech : supple , no Lymphadenopathy , normal th yroid size . : eyes : no ptosis , no icterus, no photophobia . - neurologic : Cranial nerve II to XII intact , no focal neurological deffecit . -psychatric : alert , oriented X 3 , appropriate affect , intact judgment and insight . -Lymphatic : no Lymphadenopathy . - musculoskeltal : Cervical Spine motor stregnth in the deltoid and biceps, normal right side , normal Left side motor stregnth biceps and the wrist extensors normal right side ,normal left side . motor stregnth in the triceps muscle . normal Right side , normal Left side deep tendon reflexes normal at the biceps , normal at Brachioradialis , normal at triceps. cervical facet loading test= Positive Bilaterally Spurling test= positive bilaterally. Neck distraction test= positive bi laterally. [place] sign= positive bilaterally. Lumber spine moter stegnth lower extremities ,thigh and legs 5/5 Right side , 5/5 Left side Results Comments: MRI of the cervical spine= C3 4 C4 5, fusion and cervical degenerative disc disease and cervical spondylosis with facet arthropathy Assessment and Plan Plan: Assessment and plan=1-cervical radiculopathy. 2-cervical spondylosis with cervical facet arthropathy without myelopathy. 3-failed back surgery syndrome cervical area . Patient pain mostly from the facetogenic component ,she would be good candidate to have diagnostic medial branch block cervical area At C3, C4 , C5 bilateral Time with Patient: Greater than 30 PQRS Measure Charge Sheet Measure #130: Documentation of Current Meds in Medical Chart: Patient's medications documented in chart Measure #226: Tobacco Use: Screen & Cessation Intervention: Pt not a tobacco user Measure #111: Pneumonia Vaccination: Pneumococcal vaccine administered or previously received Measure #47: Advance Care Plan: Advance care planning discussed & documented, pt chose/unable to give Measure #412: Opioid Treatment Agreement: No documentation of signed opioid treatment agreement Measure #408: Opioid Therapy Follow-up Evaluation: Patient had NO f/u eval minimum every 3 months during opioid therapy Measure #317: Preventitive Care & Scrn High Bld Press & F/U: Normal blood pressure, f/u not required Measure #128: Body Mass Index (BMI) Screening & Follow-up: BMI documented ABOVE normal parameters - f/u documented Measure #131: Pain Assessment & Follow-up: Pain positive & plan documented, Follow-up scheduled Measure #431: Unhealthy Alcohol Use Preventative Care & Scrn: Patient not identified as an unhealthy alcohol user PQRS Narrative: Smoking Status Never smoker Blood Pressure 109/64 Pain Intensity [Neck] 2 Scale Used Numeric (1 - 10) Hx Alcohol Use (MH) Yes: rare Home Medications: Ambulatory Orders Levothyroxine Sodium [Synthroid] 88 mcg PO DAILY 01/12/15 ALPRAZolam 1 mg PO TID 11/28/15 Cholecalciferol [Vitamin D3] 1,000 unit PO DAILY 03/06/17 Calcium Carbonate [Calcium] 1,200 mg PO DAILY 03/21/17 Meloxicam [Mobic] 15 mg PO DAILY PRN 03/21/17 Venlafaxine HCl [Effexor XR] 225 mg PO DAILY 03/21/17 Thiamine [Vitamin B-1] 100 mg PO DAILY 12/06/19 amLODIPine [Norvasc] 5 mg PO DAILY 12/06/19 lamoTRIgine 100 mg PO TID 12/06/19 traZODone HCL 150 mg PO HS 12/06/19
== END | disposition home or self-care (01) ==
LOC: PNWHC3 09:12
PROVIDERS: ATTEND Specialist
DX: M54.12 Radiculopathy, cervical region (principal); M47.812 Spondylosis without myelopathy or radiculopathy, cervical region; Z79.890 Hormone replacement therapy
CPT/HCPCS: 99211